=== PATIENT | female | born 1985 ===

== ENCOUNTER 2016-12-01 17:52 | Emergency (ER) | payer MEDICAID ==
[2016-12-01 17:56] VITALS: BMI 33.2
[2016-12-01 18:00] VITALS: RESP 16; TEMP 98.7
[2016-12-01] MEDS ORDERED: Sodium Chloride 0.9% 1,000 ML IV STA (18:38)
--- NOTE | 2016-12-01 18:40 | ED PDOC ---
Arrival/HPI - General Chief Complaint: Abdominal Pain Time Seen by Provider: 12/01/16 18:26 Historian: Patient - History of Present Illness Narrative History of Present Illness (Text): 12/01/16 18:38 31 year old female presents to the emergency department with intermittent suprapubic pain for the past 3 weeks and epigastric burning for the past 2 weeks. Patient states the suprapubic pain radiates to the back. She states she feels like there is acid in her mouth. Patient also reports nausea, vomiting, increased urination, and darker than usual urine. Denies dysuria or vaginal bleeding. Patient states she missed her period and had a positive test at the pharmacy. Time/Duration: > week Symptom Onset: Gradual Symptom Course: Unchanged Modifying Factors (Text): None Past Medical History - Provider Review Nursing Documentation Reviewed: Yes - Infectious Disease Hx of Infectious Diseases: None - Tetanus Immunization Tetanus Immunization: Up to Date - Past Medical History Past Medical History: No Previous - Cardiac Hx Cardiac Disorders: No Hx Angina: No - Pulmonary Hx Respiratory Disorders: No - Neurological Hx Neurological Disorder: No - HEENT Hx HEENT Disorder: No - Renal Hx Renal Disorder: No - Endocrine/Metabolic Hx Endocrine Disorders: No - Hematological/Oncological Hx Blood Disorders: No - Integumentary Hx Dermatological Disorder: No - Musculoskeletal/Rheumatological Hx Musculoskeletal Disorders: No - Gastrointestinal Hx Gastrointestinal Disorders: No - Genitourinary/Gynecological Hx Genitourinary Disorders: Yes Other/Comment: Pre-eclampsia. HSV II - Psychiatric Hx Psychophysiologic Disorder: No Hx Depression: No Hx Emotional Abuse: No Hx Physical Abuse: No Hx Substance Use: No (none) - Surgical History Hx Section: Yes Hx Cholecystectomy: Yes Hx Tonsillectomy: Yes - Anesthesia Hx Anesthesia: Yes Hx Anesthesia Reactions: No Hx Malignant Hyperthermia: No - Suicidal Assessment Feels Threatened In Home Enviroment: No Family/Social History - Physician Review Nursing Documentation Reviewed: Yes Family/Social History: Unknown Family HX Smoking Status: Never Smoked Hx Alcohol Use: No Hx Substance Use: No (none) Allergies/Home Meds Allergies/Adverse Reactions: Allergies Penicillins Allergy (Verified 12/01/16 17:56) RASH Home Medications: Home Meds Medication Instructions Recorded Confirmed Valacyclovir HCl [Valacyclovir] 500 mg PO BID 12/01/16 12/01/16 Review of Systems - Physician Review All systems were reviewed & negative as marked: Yes - Review of Systems ENT: Other (epigastric burning, acid sensation) Gastrointestinal: Abdominal Pain (suprapubic), Nausea, Vomiting Genitourinary Female: Other (Dark urine, increased urination). absent: Dysuria , Vaginal Bleeding Physical Exam - Physical Exam Narrative Physical Exam (Text): Constitutional: No acute distress. Head: Normocephalic. Atraumatic. Eyes: PERRL. ENT: Moist mucous membranes. Neck: Supple. Cardiovascular: Regular rate. Chest: No tenderness. Respiratory: Clear to auscultation bilaterally. GI: Soft. Suprapubic tenderness. No epigastric tenderness. Nondistended. Back: No CVA tenderness. Musculoskeletal: No tenderness or swelling of extremities. Skin: No rash. Neurologic: Alert, no focal deficit. Vital Signs Reviewed: Yes Vital Signs Temp Pulse Resp BP Pulse Ox 12/01/16 21:02 86 16 138/80 100 12/01/16 17:56 98.7 F 95 H 16 123/79 97 Temperature: Afebrile Blood Pressure: Normal Pulse: Regular Respiratory Rate: Normal Appearance: Positive for: Well-Appearing, Non-Toxic, Comfortable Pain Distress: None Mental Status: Positive for: Alert and Oriented X 3 Medical Decision Making ED Course and Treatment: Impression: 31 year old female presents to the emergency department with intermittent suprapubic pain for the past 3 weeks and epigastric burning for the past 2 weeks. Differential Diagnosis included but are not limited to: Plan: -- Pepcid -- IV fluids -- Labs -- Reassess and disposition Prior Visits: Notes and results from previous visits were reviewed. Patient last seen in the ED on 08/08/16 for nausea, dizziness, and discharged home. Progress Notes: UA negative. Patient feels well and appears well. Urine culture sent. Confirmed . No vaginal bleeding or abdominal tenderness. Continue pepcid for reflux. F/u OBGYN. Return to ER for fever, inability to take PO, dyspnea, or any other problem. - Lab Interpretations Lab Results: 12/01/16 18:20 12/01/16 18:20 Lab Results 12/01/16 20:55: Urine Color Yellow, Urine Appearance Clear, Urine pH 6.5, Ur Specific [place] 1.020, Urine Protein Negative, Urine Glucose (UA) Negative, Urine Ketones Negative, Urine Blood Negative, Urine Nitrate Negative, Urine Bilirubin Negative, Urine Urobilinogen 1.0 H, Ur Leukocyte Esterase Negative 12/01/16 18:20: Sodium 136, Potassium 3.9, Chloride 102, Carbon Dioxide 25, Anion Gap 13, BUN 12, Creatinine 0.7, Est GFR ( Amer) > 60, Est GFR (Non- Af Amer) > 60, Random Glucose 95, Calcium 9.0, Total Bilirubin 0.6, AST 40 H, ALT 52, Alkaline Phosphatase 69, Total Protein 8.2, Albumin 4.1, Globulin 4.1, Albumin/Globulin Ratio 1.0 L, Lipase 97 12/01/16 18:20: WBC 12.1 H D, RBC 4.40, Hgb 13.4, Hct 37.5, MCV 85.2, MCH 30.5, MCHC 35.7, RDW 13.0, Plt Count 352, MPV 9.6, Gran % 65.0, Lymph % (Auto) 26.2, [place] % (Auto) 5.9, Eos % (Auto) 2.7, Baso % (Auto) 0.2, Gran # 7.89 H, Lymph # 3.2, [place] # 0.7 H, Eos # 0.3, Baso # 0.02 - Medication Orders Current Medication Orders: Discontinued Medications Famotidine (Pepcid) 20 mg IVP STAT STA Stop: 12/01/16 18:39 Last Admin: 12/01/16 19:30 Dose: 20 mg Sodium Chloride (Sodium Chloride 0.9%) 1,000 mls @ 999 mls/hr IV .Q1H1M STA Stop: 12/01/16 19:38 Last Admin: 12/01/16 19:30 Dose: 999 mls/hr - Scribe Statement The provider has reviewed the documentation as recorded by the Katie Guevara Provider Scribe Attestation: All medical record entries made by the Leslyibcharla were at my direction and personally dictated by me. I have reviewed the chart and agree that the record accurately reflects my personal performance of the history, physical exam, medical decision making, and the department course for this patient. I have also personally directed, reviewed, and agree with the discharge instructions and disposition. Disposition/Present on Arrival - Present on Arrival Any Indicators Present on Arrival: No History of DVT/PE: No History of Uncontrolled Diabetes: No Urinary Catheter: No History of Decub. Ulcer: No History Surgical Site Infection Following: None - Disposition Have Diagnosis and Disposition been Completed?: Yes Diagnosis: Disposition: HOME/ ROUTINE Disposition Time: 21:00 Patient Plan: Discharge Condition: STABLE Discharge Instructions (ExitCare): Morning Sickness (ED), (ED) Prescriptions: Famotidine [Pepcid] 1 tab PO BID #14 tab Referrals: Moriah Fowler MD [Primary Care Provider] - Follow up with primary
[2016-12-01 19:03] LABS: ADD MANUAL DIFF? NO
[2016-12-01 19:10] LABS: BASO # 0.02 K/mm3 (0.0-2.0); BASO % 0.2 % (0.0-3.0); EOS # 0.3 (0.0-0.7); EOS % 2.7 % (1.5-5.0); GRAN # 7.89 (1.4-6.5); HEMATOCRIT 37.5 % (36.0-48.0); LYMPH # 3.2 (1.2-3.4); LYMPH % 26.2 % (22.0-35.0); MEAN CELL VOLUME 85.2 fL (80.0-105.0); MEAN CORPUSCULAR HEMOGLOBIN 30.5 pg (25.0-35.0); MEAN CORPUSCULAR HGB CONC 35.7 g/dl (31.0-37.0); MEAN PLATELET VOLUME 9.6 fl (7.0-11.0); MONO # 0.7 (0.1-0.6); MONO % 5.9 % (1.0-6.0); PLATELET COUNT 352 10^3/uL (120.0-450.0); WHITE BLOOD COUNT 12.1 10^3/ul (4.5-11.0)
[2016-12-01 19:32] LABS: ALKALINE PHOSPHATASE 69 U/L (38-133); ALT/SGPT 52 U/L (7-56); AST/SGOT 40 U/L (15-39); BILIRUBIN,TOTAL 0.6 mg/dL (0.2-1.3); BLOOD UREA NITROGEN 12 mg/dL (7-21); CARBON DIOXIDE 25 mmol/L (21-33); CHLORIDE 102 mmol/L (95-110); GFR AFRICAN-AMERICAN > 60; GLUCOSE,RANDOM 95 mg/dL (70-110); LIPASE 97 U/L (23-300); POTASSIUM 3.9 mmol/L (3.6-5.0); SODIUM 136 mmol/L (132-148); TOTAL PROTEIN 8.2 g/dL (5.8-8.3)
[2016-12-01 21:03] VITALS: BP 138/80; PULSE 86; O2SAT 100
[2016-12-01 21:11] LABS: PH,URINE 6.5 (4.7-8.0); URINE BILIRUBIN NEGATIVE (NEGATIVE); URINE BLOOD NEGATIVE (NEGATIVE); URINE GLUCOSE (UA) NEGATIVE (NEGATIVE); URINE KETONE NEGATIVE (NEGATIVE); URINE LEUKOCYTE ESTERASE NEGATIVE Leu/uL (NEGATIVE); URINE PROTEIN NEGATIVE mg/dL (<30 mg/dL)
[2016-12-01 21:14] LABS: URINE APPEARANCE CLEAR (CLEAR); URINE COLOR YELLOW (YELLOW)
== END 2016-12-01 21:32 | disposition home or self-care (01) ==
LOC: ED 17:52
DX: O26.90 Pregnancy related conditions, unspecified, unspecified trimester (principal); Z3A.00 Weeks of gestation of pregnancy not specified
CPT/HCPCS: 80053; 81003; 83690; 84702; 85025; 87086; 96361; 96374; 99283; J7040

== ENCOUNTER 2016-12-07 11:53 | Inpatient (IN) | payer MEDICAID ==
[2016-12-07 11:57] VITALS: BMI 28.3
[2016-12-07] MEDS: Sodium Chloride 0.9% 1,000 ML IV STA (12:03)
[2016-12-07 12:31] LABS: ADD MANUAL DIFF? NO
--- NOTE | 2016-12-07 12:32 | ED PDOC ---
Arrival/HPI - General Chief Complaint: Abdominal Pain Time Seen by Provider: 12/07/16 11:54 Historian: Patient - History of Present Illness Narrative History of Present Illness (Text): 12/07/16 12:00 A 31 year old 19 week female, whose past medical history includes ectopic , presents to the emergency department complaining of left lower quadrant abdominal pain. Patient states her last menstrual cycle was in . She reports this morning at 5 am she developed sudden onset left lower quadrant abdominal pain, which radiates to the back. Pain is associated with nausea. Patient denies any vaginal bleeding, dyruria, hematuria, diarrhea, or other complaints at this time. Patient states she did not have any pain or discharge prior to going to bed last night. Patient reports no care or ultrasound thus far. Patient says had an ectopic back in 2009 when she was in [place]. PMD: Dr. Fowler Time/Duration: Other (6-12 hours) Symptom Onset: Sudden Symptom Course: Unchanged Quality: Other Activities at Onset: Rest Context: Home Past Medical History - Provider Review Nursing Documentation Reviewed: Yes - Infectious Disease Hx of Infectious Diseases: None - Tetanus Immunization Tetanus Immunization: Up to Date - Past Medical History Past Medical History: No Previous - Cardiac Hx Cardiac Disorders: No Hx Angina: No - Pulmonary Hx Respiratory Disorders: No - Neurological Hx Neurological Disorder: No - HEENT Hx HEENT Disorder: No - Renal Hx Renal Disorder: No - Endocrine/Metabolic Hx Endocrine Disorders: No - Hematological/Oncological Hx Blood Disorders: No - Integumentary Hx Dermatological Disorder: No - Musculoskeletal/Rheumatological Hx Musculoskeletal Disorders: No - Gastrointestinal Hx Gastrointestinal Disorders: No - Genitourinary/Gynecological Hx Genitourinary Disorders: Yes Other/Comment: Pre-eclampsia, 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 - Psychiatric Hx Psychophysiologic Disorder: No Hx Depression: No Hx Emotional Abuse: No Hx Physical Abuse: No Hx Substance Use: No (none) - Surgical History Hx Section: Yes Hx Cholecystectomy: Yes Hx Tonsillectomy: Yes - Anesthesia Hx Anesthesia: Yes Hx Anesthesia Reactions: No Hx Malignant Hyperthermia: No - Suicidal Assessment Feels Threatened In Home Enviroment: No Family/Social History - Physician Review Nursing Documentation Reviewed: Yes Family/Social History: Unknown Family HX Smoking Status: Never Smoked Hx Alcohol Use: No Hx Substance Use: No (none) Allergies/Home Meds Allergies/Adverse Reactions: Allergies Penicillins Allergy (Verified 12/07/16 15:20) RASH Home Medications: Home Meds Medication Instructions Recorded Confirmed No Known Home Med 12/07/16 12/07/16 Review of Systems - Review of Systems Constitutional: Fevers. absent: Fatigue Eyes: absent: Vision Changes, Eye Pain ENT: absent: Rhinorrhea Respiratory: absent: SOB Cardiovascular: absent: Chest Pain Gastrointestinal: Abdominal Pain, Nausea. absent: Diarrhea Genitourinary Female: absent: Dysuria, Frequency, Hematuria, Vaginal Bleeding, Vaginal Discharge Musculoskeletal: Back Pain. absent: Neck Pain Skin: absent: Rash, Pruritis Neurological: absent: Headache, Dizziness Endocrine: absent: Polyuria Hemo/Lymphatic: absent: Easy Bleeding Psychiatric: absent: Depression Physical Exam - Physical Exam Narrative Physical Exam (Text): Head: Atraumatic. Normocephalic. Eyes: PERRL. EOMI. Conjunctivae are not pale. ENT: Mucous membranes are moist and intact. Oropharynx is clear and symmetric. Neck: Supple. Full ROM. No JVD. No lymphadenopathy. Cardiovascular: Regular rate. Regular rhythm. No murmurs, rubs, or gallops. Distal pulses are 2+ and symmetric. Pulmonary/Chest: No evidence of respiratory distress. Clear to auscultation bilaterally. No wheezing, rales or rhonchi. Abdominal: Soft and non-distended. Severe diffuse tenderness with focal rebound and guarding at the left lower quadrant. No rigidity. No organomegaly. Good bowel sounds. Back: No CVA tenderness. Genitourinary/Pelvic Exam: No: Vaginal Discharge, Vaginal Bleeding Extremities: No edema. No cyanosis. No clubbing. Full range of motion in all extremities. No calf tenderness. Skin: Skin is warm and dry. No petechiae. No purpura. Neurological: Alert, awake, and oriented to person, place, time, and situation. Normal speech. Psychiatric: Good eye contact. Normal interaction, affect, and behavior. Vital Signs Reviewed: Yes Vital Signs Temp Pulse Resp BP Pulse Ox 12/07/16 14:47 111 H 16 127/80 100 12/07/16 13:00 121 H 17 125/77 100 12/07/16 11:59 100.6 F H 121 H 19 134/74 98 Temperature: Febrile Blood Pressure: Normal Pulse: Tachycardic Respiratory Rate: Normal Appearance: Positive for: Well-Appearing, Non-Toxic, Uncomfortable Pain Distress: Severe Mental Status: Positive for: Alert and Oriented X 3 Finger Stick Blood Glucose: 110 - Systems Exam Head: Present: Atraumatic, Normocephalic Pupils: Present: PERRL Extroacular Muscles: Present: EOMI Conjunctiva: Present: Normal Mouth: Present: Moist Mucous Membranes Neck: Present: Normal Range of Motion Respiratory/Chest: Present: Clear to Auscultation, Good Air Exchange. No: Respiratory Distress, Accessory Muscle Use Cardiovascular: Present: Normal S1, S2, Tachycardic. No: Murmurs Abdomen: Present: Tenderness (severe diffuse tenderness ), Normal Bowel Sounds, Rebound (focal rebound at the left lower quadrant), Guarding (focal guarding at the left lower quadrant), Other (diffuse tenderness, focal to left lower quadrant pain, NO right lower quadrant rebound or guarding). No: Distention, Peritoneal Signs Genitourinary/Pelvic Exam: Present: Normal External Genitalia, Other (luis, rn metal building assembler, no external veiscular lesions, no vaginal bleeding or vaginal discharge, no adnexal masses palpated, has tenderness in vaginal vault but no cervical motion tenderness, no active bleeding). No: Vaginal Discharge, Vaginal Bleeding, Vaginal Lesions Back: No: CVA Tenderness Upper Extremity: Present: Normal Inspection. No: Cyanosis, Edema Lower Extremity: Present: Normal Inspection. No: Edema Neurological: Present: GCS=15, CN II-XII Intact, Speech Normal Skin: Present: Warm, Dry, Normal Color. No: Rashes Psychiatric: Present: Alert, Oriented x 3, Normal Insight, Normal Concentration Medical Decision Making ED Course and Treatment: 12/07/16 12:00 Impression: A 31 year old female with a history of a ectopic complaining of left lower quadrant pain. Based on patient history and initial examination 2 IV lines were established. Emergent consultation with Dr. Garcia from on-call gynecology obtained immediately after exam due to concern for ectopic . Prior Visits: Notes and results from previous visits were reviewed. The patient last presented to the emergency department on 12/01/16 for evaluation suprapubic pain. Progress Notes: I communicated with ultrasound for emergency ultrasound, continued monitoring of patient and BP. Prior records reveal that she has had history of cholecystectomy. There is no FOCAL right lower quadrant pain on exam. Patient states she had NO PAIN prior to going to bed last night and she had sudden onset of pain that woke her up from sleep at 5 am today. She presents to ED at approximately 12 noon, stating pain has been on and off throughout the morning. Fever noted, but initial lactate unremarkable. BP at this time stable. She denies cough or shortness of breath. Prior visit reviewed, urine culture was unremarkable from 12/01. I have offered patient iv pain medication and did review potential risks and side effects with . After discussion, she refuses any iv pain medication. PROCEDURE: OB Pelvic Ultrasound Investment Manager : Scarlett Álvarez MD Report Date : 12/07/2016 12:56:24 IMPRESSION: Single live intrauterine gestation with mean gestational age of 6 weeks and 4 days. The ultrasound dates lag the clinical dates by approximately 5 weeks. Clinical correlation and follow-up is advised. Estimated date of delivery by ultrasound is 07/29/2017. 12/07/16 13:30 Re-exam upon return from ultrasound. Patient heart rate 110. DENIES CHEST PAIN OR SHORTNESS OF BREATH. On exam, she states pain improved, but on exam, persistent left lower quadrant pain. Continues to have no rlq or ruq abdominal pain. Dr. Garcia updated with patient's ultrasound findings revealing IUP. No adnexal masses reported. Tachycardia improved. Continues to deny chest pain or shortness of breath or pleuritic pain. There is no calf pain or swelling. No prior hx of deep vein thombosis or pulmonary embolism. No hypoxia. No prolonged travel or immoblization by history. Symptoms consistent abdominal pain. Suspect tachycardia possibly related to history of nausea, decreased appetite, possible component of dehydration, will continue iv fluids but continue monitoring. Also possibly secondary to low grade fever. Ddx includes PID but she denies hx of STD, reports no known exposures. NO cervical motion tenderness noted on pelvic exam with ANNELIESE Cruz metal building assembler. GC/ Chlamydia ordered. Patient reports allergy to PCN. No rebound or guarding on re-exam. Surgery consulted as patient with history of severe lower abdominal pain with leukocytosis, and IUP documented on ultrasound. Patient with persistent pain will admit for serial exams, case discussed with Dr. Iyer, hospitalist. Dr Garcia updated with treatment plan and consultation. Risks discussed with patient as she has persistent pain. Risks of miscarriage, complications reviewed with patient, currently cv stable with chest pain or sob in ED, care turned over to hospitalist with admission. - Lab Interpretations Lab Results: 12/07/16 12:06 12/07/16 12:06 Lab Results 12/07/16 12:55: Influenza Typ A,B (EIA) Negative for flu a/b 12/07/16 12:30: Blood Type A POSITIVE, Antibody Screen Negative, BBK History Checked No verified bt 12/07/16 12:11: POC Glucose (mg/dL) 110 12/07/16 12:06: Beta HCG, Quant 63491.00 H 12/07/16 12:06: Sodium 134, Chloride 98, Potassium 4.2, Carbon Dioxide 25, Anion Gap 15, BUN 9, Creatinine 0.6, Est GFR ( Amer) > 60, Est GFR (Non- Af Amer) > 60, Random Glucose 92, Calcium 9.8, Total Bilirubin 0.9, AST 21, ALT 36, Alkaline Phosphatase 71, Total Protein 8.4 H, Albumin 4.5, Globulin 3.9, Albumin/Globulin Ratio 1.2 12/07/16 12:06: pO2 33, VBG pH 7.37, VBG pCO2 47.0, VBG HCO3 27.2, VBG Total CO2 28.6 H, VBG O2 Sat (Calc) 64.2, VBG Base Excess 1.3, VBG Potassium 4.1, Sodium 133.0, Chloride 99.0, Glucose 102, Lactate 1.0, FiO2 21.0, Venous Blood Potassium 4.1 12/07/16 12:06: PT 10.8, INR 1.00, APTT 25.7 12/07/16 12:06: WBC 15.4 H D, RBC 4.78, Hgb 14.7, Hct 40.6, MCV 84.9, MCH 30.8, MCHC 36.2, RDW 13.0, Plt Count 325, MPV 10.0, Gran % 86.9 H, Lymph % (Auto) 7.4 L, [place] % (Auto) 5.3, Eos % (Auto) 0.3 L, Baso % (Auto) 0.1, Gran # 13.33 H, Lymph # 1.1 L, [place] # 0.8 H, Eos # 0.1, Baso # 0.02 - RAD Interpretation Radiology Orders: 12/07/16 12:12 OB TRANSVAGINAL [US] Stat Algebraist: Radiologist - EKG Interpretation EKG Interpretation (Text): 12/07/16 12:12 EKG sinus tachycardia rate of 119 Interpreted by ED Physician: Yes Type: 12 lead EKG - Medication Orders Current Medication Orders: Acetaminophen (Tylenol 325mg Tab) 650 mg PO Q6H PRN PRN Reason: Fever >100.4 F Famotidine (Pepcid) 20 mg IVP DAILY [facility] Last Admin: 12/07/16 14:46 Dose: 20 mg Sodium Chloride (Sodium Chloride 0.9%) 1,000 mls @ 100 mls/hr IV .Q10H [facility] Last Admin: 12/07/16 14:42 Dose: 100 mls/hr Ondansetron HCl (Zofran Inj) 4 mg IVP Q4H PRN PRN Reason: Nausea/Vomiting Discontinued Medications Acetaminophen (Tylenol 325mg Tab) 650 mg PO ONCE STA Stop: 12/07/16 12:15 Last Admin: 12/07/16 12:50 Dose: 650 mg Re-Assess: [facility] Pain/Vitals Document 12/07/16 13:50 ML (Rec: 12/07/16 15:36 ML [id number]) Pain Reassessment Is This A Pain ReAssessment? Yes Sleep Is patient sleeping during reassessment? No Presence of Pain Presence of Pain Yes Pain Scale Used Pain Scale Used Numeric Location Left, Right or Bilateral Left Pain Location Body Site Abdomen Description Intermittent Intensity 6 Pain Behavior Guarding Irritability Sodium Chloride (Sodium Chloride 0.9%) 1,000 mls @ 1,000 mls/hr IV .Q1H STA Stop: 12/07/16 13:02 Last Admin: 12/07/16 12:03 Dose: 1,000 mls/hr Aztreonam (Azactam 1 Gm) 100 mls @ 100 mls/hr IVPB STAT STA PRN Reason: Protocol Stop: 12/07/16 15:49 Last Admin: 12/07/16 15:04 Dose: 100 mls/hr - Scribe Statement The provider has reviewed the documentation as recorded by the Scribcharla Begum Provider Scribe Attestation: All medical record entries made by the Scribe were at my direction and personally dictated by me. I have reviewed the chart and agree that the record accurately reflects my personal performance of the history, physical exam, medical decision making, and the department course for this patient. I have also personally directed, reviewed, and agree with the discharge instructions and disposition. Disposition/Present on Arrival - Present on Arrival Any Indicators Present on Arrival: No History of DVT/PE: No History of Uncontrolled Diabetes: No Urinary Catheter: No History of Decub. Ulcer: No History Surgical Site Infection Following: None - Disposition Have Diagnosis and Disposition been Completed?: Yes Diagnosis: Abdominal pain, , Leukocytosis Disposition: HOSPITALIZED Disposition Time: 13:00 Patient Plan: Admission, Telemetry Patient Problems: Current Active Problems Problem Status Onset Abdominal pain Acute Leukocytosis Acute Acute Condition: SERIOUS
[2016-12-07 12:34] LABS: VENOUS BLOOD GAS BASE EXCESS 1.3 mmol/L (0.0-2.0); VENOUS BLOOD PH 7.37 (7.32-7.43)
[2016-12-07 12:37] LABS: BASO # 0.02 K/mm3 (0.0-2.0); BASO % 0.1 % (0.0-3.0); EOS # 0.1 (0.0-0.7); EOS % 0.3 % (1.5-5.0); GRAN # 13.33 (1.4-6.5); GRAN % 86.9 % (50.0-68.0); HEMATOCRIT 40.6 % (36.0-48.0); LYMPH # 1.1 (1.2-3.4); LYMPH % 7.4 % (22.0-35.0); MEAN CELL VOLUME 84.9 fL (80.0-105.0); MEAN CORPUSCULAR HEMOGLOBIN 30.8 pg (25.0-35.0); MEAN CORPUSCULAR HGB CONC 36.2 g/dl (31.0-37.0); MONO # 0.8 (0.1-0.6); MONO % 5.3 % (1.0-6.0); PLATELET COUNT 325 10^3/uL (120.0-450.0); WHITE BLOOD COUNT 15.4 10^3/ul (4.5-11.0)
[2016-12-07 12:44] LABS: PARTIAL THROMBOPLASTIN TIME 25.7 Seconds (23.7-30.8)
[2016-12-07 12:45] LABS: ALB/GLOB RATIO 1.2 (1.1-1.8); ALKALINE PHOSPHATASE 71 U/L (38-133); ALT/SGPT 36 U/L (7-56); AST/SGOT 21 U/L (15-39); BILIRUBIN,TOTAL 0.9 mg/dL (0.2-1.3); BLOOD UREA NITROGEN 9 mg/dL (7-21); CALCIUM 9.8 mg/dL (8.4-10.5); CARBON DIOXIDE 25 mmol/L (21-33); CHLORIDE 98 mmol/L (98-107); GFR AFRICAN-AMERICAN > 60; GLUCOSE,RANDOM 92 mg/dL (70-110); POTASSIUM 4.2 mmol/L (3.6-5.0); SODIUM 134 mmol/L (132-148); TOTAL PROTEIN 8.4 g/dL (5.8-8.3)
--- NOTE | 2016-12-07 12:58 | US ---
PROCEDURE: OB Pelvic Ultrasound HISTORY: Severe lower abdominal pain COMPARISON: None available. FINDINGS: UTERUS: Single Live intrauterine gestation. CRL equivalent to 6 wks/ 4 days gestatioin Gestational sac diameter equivalent to 6 wks/4 days gestation age (Ultrasound estimated): 6 weeks and 4 days Date of delivery (Ultrasound estimated) : 07/29/2017 Heart rate: 140 bpm. Hanny-gestational hemorrhage: None. Uterus measures 12.2 x 4.4 x 7.0 cm. No mass CERVIX: Long and closed. No cervical abnormality seen. RIGHT OVARY: Measures 3.1 x 1.8 x 1.7 cm. No mass. Normal flow. LEFT OVARY: Measures 2.3 x 1.6 x 1.7 cm. No mass. Normal flow. FREE FLUID: None. OTHER FINDINGS: None. IMPRESSION: Single live intrauterine gestation with mean gestational age of 6 weeks and 4 days. The ultrasound dates lag the clinical dates by approximately 5 weeks. Clinical correlation and follow-up is advised. Estimated date of delivery by ultrasound is 07/29/2017.
[2016-12-07 14:28] LABS: URINE BILIRUBIN NEGATIVE (NEGATIVE); URINE BLOOD NEGATIVE (NEGATIVE); URINE GLUCOSE (UA) NEGATIVE (NEGATIVE); URINE KETONE 15 mg/dL (NEGATIVE); URINE LEUKOCYTE ESTERASE NEGATIVE Leu/uL (NEGATIVE); URINE PROTEIN NEGATIVE mg/dL (<30 mg/dL); URINE UROBILINOGEN 0.2 E.U./dL (<1 E.U./dL)
[2016-12-07 14:33] LABS: URINE APPEARANCE CLEAR (CLEAR); URINE COLOR YELLOW (YELLOW)
[2016-12-07] MEDS: Sodium Chloride 0.9% 1,000 ML IV SCH (14:42)
[2016-12-07] MEDS ORDERED: Aztreonam 1 Gm in NS 100mL 100 ML IVPB STA (14:50)
--- NOTE | 2016-12-07 15:28 | CP.PCM.HP ---
<Osvaldo Camarillo - Last Filed: 12/07/16 16:15> History of Present Illness - History of Present Illness History of Present Illness: 31 year old female who is 6 weeks presented to the ED sudden sharp LLQ abdominal pain, which radiates to the back and is associated with nausea, low grade fever of 100.6 and leukocytosis. Pelvic exam did not have evidence of bleeding or discharge and transvaginal US showed a 6 week intrauterine . Pt's last normal period was in Aug and her periods in Sep and Oct lasted one day. Pt. was in the ED 1 week prior for intermittent suprapubic pain for 3 weeks and epigastric burning for 2 weeks, but did not have a fever or leukocytosis. HCG at that time confirmed . Patient denies any vaginal bleeding, dysuria, hematuria, diarrhea, or other complaints at this time. 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 absent: Fatigue - EENT Eyes: absent: Blurred Vision, Change in Vision Ears: absent: Decreased Hearing Nose/Mouth/Throat: absent: Epistaxis, Sore Throat, Neck Pain - Cardiovascular Cardiovascular: Rapid Heart Rate. absent: Chest Pain, Chest Pain at Rest, Dyspnea, Irregular Heart Rhythm, Leg Edema, Leg Ulcers, Palpitations - Respiratory Respiratory: absent: Cough, Dyspnea, Hemoptysis, Chest Congestion - Gastrointestinal Gastrointestinal: Abdominal Pain (left lower quadrant), Heartburn, Nausea. absent: Constipation, Diarrhea - Genitourinary Genitourinary: absent: Dysuria, Hematuria, Pyuria, Urinary Frequency - Reproductive: Female Reproductive:Female: absent: Vaginal Discharge, Vaginal Dryness, Vaginal Odor Additional comments: Pt. is approximately 6 weeks - Menstruation Menstruation: absent: Abnormal Vaginal Bleeding - Musculoskeletal Musculoskeletal: absent: Joint Swelling, Muscle Weakness, Neck Pain - Integumentary Integumentary: absent: Rash, Skin Pain, Swelling - Psychiatric Psychiatric: absent: Anxiety, Depression, Hopelessness, Irritability - Endocrine Endocrine: absent: Fatigue, Palpitations, Polydipsia, Polyuria Past Patient History - Infectious Disease Hx of Infectious Diseases: None - Tetanus Immunizations Tetanus Immunization: Up to Date - Past Social History Smoking Status: Never Smoked Chewing Tobacco Use: No Cigar Use: No Alcohol: None Drugs: Denies Home Situation {Lives}: Alone (with 2 sons 15 and 11) - CARDIAC Hx Cardiac Disorders: Yes Hx Angina: No Hx Hypertension: Yes - PULMONARY Hx Respiratory Disorders: No - NEUROLOGICAL Hx Neurological Disorder: No - HEENT Hx HEENT Problems: No - RENAL Hx Chronic Kidney Disease: No - ENDOCRINE/METABOLIC Hx Endocrine Disorders: No - HEMATOLOGICAL/ONCOLOGICAL Hx Blood Disorders: No - INTEGUMENTARY Hx Dermatological Problems: No - MUSCULOSKELETAL/RHEUMATOLOGICAL Hx Musculoskeletal Disorders: No - GASTROINTESTINAL Hx Gastrointestinal Disorders: Yes Hx Gastroesophageal Reflux: Yes - GENITOURINARY/GYNECOLOGICAL Hx Genitourinary Disorders: Yes Other/Comment: Pre-eclampsia, 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 LMP:: October : 4 (currently ) Para: 2 Termination of : 1 (Ectopic Preg) - PSYCHIATRIC Hx Psychophysiologic Disorder: No Hx Depression: No Hx Emotional Abuse: No Hx Physical Abuse: No Hx Substance Use: No (none) - SURGICAL HISTORY Hx Section: Yes Hx Cholecystectomy: Yes Hx Tonsillectomy: Yes - ANESTHESIA Hx Anesthesia: Yes Hx Anesthesia Reactions: No Hx Malignant Hyperthermia: No Meds Allergies/Adverse Reactions: Allergies Allergy/AdvReac Type Severity Reaction Status Date / Time Penicillins Allergy RASH Verified 12/07/16 15:20 Physical Exam - Head Exam Head Exam: ATRAUMATIC, NORMOCEPHALIC - Eye Exam Eye Exam: EOMI - ENT Exam ENT Exam: Mucous Membranes Moist - Respiratory Exam Respiratory Exam: Clear to Auscultation Bilateral, NORMAL BREATHING PATTERN. absent: Rhonchi, Wheezes - Cardiovascular Exam Cardiovascular Exam: Tachycardia, +S1, +S2. absent: JVD - GI/Abdominal Exam GI & Abdominal Exam: Normal Bowel Sounds, Soft, Tenderness (left side) - Extremities Exam Extremities exam: Positive for: full ROM, normal inspection. Negative for: joint swelling, pedal edema, tenderness - Neurological Exam Neurological exam: Alert, CN II-XII Intact, Oriented x3 - Psychiatric Exam Psychiatric exam: Normal Affect, Normal Mood - Skin Skin Exam: Dry, Intact, Normal Color, Warm Results - Vital Signs Recent Vital Signs: Last Vital Signs Temp 100.6 F H 12/07/16 11:59 Pulse 111 H 12/07/16 14:47 Resp 16 12/07/16 14:47 BP 127/80 12/07/16 14:47 Pulse Ox 100 12/07/16 14:47 - Labs Result Diagrams: 12/07/16 12:06 12/07/16 12:06 Labs: Laboratory Results - last 24 hr 12/07/16 12/07/16 14:00 14:00 Urine Color Yellow Urine Appearance Clear Urine pH 7.0 Ur Specific [place] 1.010 Urine Protein Negative Urine Glucose (UA) Negative Urine Ketones 15 H Urine Blood Negative Urine Nitrate Negative Urine Bilirubin Negative Urine Urobilinogen 0.2 Ur Leukocyte Esterase Negative Urine HCG, Qual Positive Blood Type Confirm A POSITIVE Assessment & Plan - Assessment and Plan (Free Text) Assessment: 31 year old female who is 6 weeks presented to the ED sudden sharp LLQ abdominal pain. Gastritis vs Entertitis vs PID. Plan: Abdominal pain in the setting of Blood Culture Urine Culture Drug Screen G/C screen HIV Aztreonam - received one dose in the ED IV fluids 100ml/hr Zofran 4mg q4 prn Pepcid 20mg daily Tylenol 650mg q6 prn for pain Morphine for intractable pain ID consult - Dr. Triplett -appreciate recs OB consult - Dr. Garcia -appreciate recs Surgery consult - Dr. Alston -appreciate recs -no acute surgical intervention at this time SCD's for DVT ppx - Date & Time Date: 12/07/16 Time: 14:00 <Giselle Iyer - Last Filed: 12/08/16 17:45> Results - Vital Signs Recent Vital Signs: Last Vital Signs Temp 98.5 F 12/08/16 17:16 Pulse 80 12/08/16 17:16 Resp 18 12/08/16 17:16 BP 114/74 12/08/16 17:16 Pulse Ox 100 12/08/16 17:16 - Labs Result Diagrams: 12/08/16 07:00 12/08/16 07:00 Attending/Attestation - Attestation I have personally seen and examined this patient.: Yes I have fully participated in the care of the patient.: Yes I have reviewed all pertinent clinical information: Yes Notes (Text): 12/08/16 17:40 attending note; patient seen and examined With the resident in ER. patient is a 31-year-old female admitted with diffuse abdominal pain. Patient was found to be . Transvaginal ultrasound showed intra-atrial of 6 weeks and 4 days. Patient with a history of UTI with and preeclampsia 13 yrs ago. Currently no GI/ symptoms. denies any diarrhea. Denies any urinary symptoms. Clinically nontoxic. Continue IV fluids. Monitor for fever. Surgery evaluation requested. ID evaluation requested. Patient is allergic to penicillin. Started on IV Azactam. Monitor closely. We will monitor the patient closely. If clinically patient deteriorates Will order CT scan or MRI. risks and benefits all the tests and medications explained to the patient in detail. Case discussed with PIPE CHANGER Dr. Garcia by ED attending DR. Benavidez. upon discharge the patient will follow up with PMD DR. Fowler.
--- NOTE | 2016-12-07 15:29 | CP.PCM.CON ---
History of Present Illness - History of Present Illness History of Present Illness: Surgery: Dr. Moreno CC: Left side and Left flank pain HPI: Patient is a 31 y/o A1 female who presents complaining for left sided abdominal pain that started this morning. She states she woke up this morning feeling nauseated and subsequently started vomiting. She states the pain started after the episode of vomiting. She denies hematemesis. She states she attempted to have a bowel movement however was unsuccessful. Last report BM was 3 days ago. She cant keep water down without vomiting. She denies strange food types. She denies diarrhea. She reports fever at home. The pain in the LLQ radiates to the left flank. Described as sharp and mainly present with palpation only. She reports her last period was in September which was normal however in October and November she only had a period for 1 day. She states she was unaware she was until about 1 week ago when she was seen in ER for dysuria. She has not seen a OBGYN physician. She reports being sexually active with boyfriend and reports monogamy. PMH: genital herpes-take medication for breakouts only, gestational diabetes, ectopic PSH: salpingectomy, laparoscopic 2/2 ectopic Social: denies ETOH or tobacco products, reports monogamous relationship w/ boyfriend Review of Systems - Review of Systems All systems: reviewed and no additional remarkable complaints except Review of Systems: unless stated in HPI - Constitutional Constitutional: Anorexia, Fever. absent: Chills - EENT Eyes: absent: Blind Spots, Blurred Vision Nose/Mouth/Throat: absent: Sinus Pain, Dry Mouth - Cardiovascular Cardiovascular: absent: Chest Pain, Diaphoresis - Respiratory Respiratory: absent: Cough, Dyspnea - Gastrointestinal Gastrointestinal: Abdominal Pain, Nausea, Vomiting. absent: Bloating, Cramping , Diarrhea - Genitourinary Genitourinary: Flank Pain. absent: Dysuria, Hematuria - Reproductive: Female Reproductive:Female: Amenorrhea. absent: Genital Lesions, Vaginal Discharge, Vaginal Odor, Vaginal Pruritis Additional comments: 6wk4d EGA by ultrasound - Musculoskeletal Musculoskeletal: As Per HPI - Integumentary Integumentary: As Per HPI - Neurological Neurological: As Per HPI - Endocrine Endocrine: As Per HPI. absent: Polydipsia, Polyphagia - Hematologic/Lymphatic Hematologic: absent: Easy Bleeding, Easy Bruising Past Patient History - Infectious Disease Hx of Infectious Diseases: None - Tetanus Immunizations Tetanus Immunization: Up to Date - Past Social History Smoking Status: Never Smoked - CARDIAC Hx Cardiac Disorders: No Hx Angina: No - PULMONARY Hx Respiratory Disorders: No - NEUROLOGICAL Hx Neurological Disorder: No - HEENT Hx HEENT Problems: No - RENAL Hx Chronic Kidney Disease: No - ENDOCRINE/METABOLIC Hx Endocrine Disorders: No - HEMATOLOGICAL/ONCOLOGICAL Hx Blood Disorders: No - INTEGUMENTARY Hx Dermatological Problems: No - MUSCULOSKELETAL/RHEUMATOLOGICAL Hx Musculoskeletal Disorders: No - GASTROINTESTINAL Hx Gastrointestinal Disorders: No - GENITOURINARY/GYNECOLOGICAL Hx Genitourinary Disorders: Yes Other/Comment: Pre-eclampsia, 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 - PSYCHIATRIC Hx Psychophysiologic Disorder: No Hx Depression: No Hx Emotional Abuse: No Hx Physical Abuse: No Hx Substance Use: No (none) - SURGICAL HISTORY Hx Section: Yes Hx Cholecystectomy: Yes Hx Tonsillectomy: Yes - ANESTHESIA Hx Anesthesia: Yes Hx Anesthesia Reactions: No Hx Malignant Hyperthermia: No Meds Allergies/Adverse Reactions: Allergies Allergy/AdvReac Type Severity Reaction Status Date / Time Penicillins Allergy RASH Verified 12/07/16 15:20 - Medications Medications: Current Medications Acetaminophen (Tylenol 325mg Tab) 650 mg PO Q6H PRN PRN Reason: Fever >100.4 F Famotidine (Pepcid) 20 mg IVP DAILY [facility] Last Admin: 12/07/16 14:46 Dose: 20 mg Sodium Chloride (Sodium Chloride 0.9%) 1,000 mls @ 100 mls/hr IV .Q10H [facility] Last Admin: 12/07/16 14:42 Dose: 100 mls/hr Aztreonam (Azactam 1 Gm) 100 mls @ 100 mls/hr IVPB STAT STA PRN Reason: Protocol Stop: 12/07/16 15:49 Last Admin: 12/07/16 15:04 Dose: 100 mls/hr Ondansetron HCl (Zofran Inj) 4 mg IVP Q4H PRN PRN Reason: Nausea/Vomiting Physical Exam - Constitutional Appears: Non-toxic, No Acute Distress - Head Exam Head Exam: ATRAUMATIC, NORMOCEPHALIC - Eye Exam Eye Exam: EOMI, Normal appearance - ENT Exam ENT Exam: Mucous Membranes Moist - Respiratory Exam Respiratory Exam: NORMAL BREATHING PATTERN. absent: Respiratory Distress - Cardiovascular Exam Cardiovascular Exam: Tachycardia, REGULAR RHYTHM - GI/Abdominal Exam GI & Abdominal Exam: Soft, Tenderness (LLQ and Left flank, suprapubic ) - Extremities Exam Extremities exam: Positive for: normal inspection. Negative for: calf tenderness - Neurological Exam Neurological exam: Alert - Psychiatric Exam Psychiatric exam: Normal Affect, Normal Mood - Skin Skin Exam: Dry, Normal Color, Warm Results - Vital Signs Recent Vital Signs: Last Vital Signs Temp 100.6 F H 12/07/16 11:59 Pulse 111 H 12/07/16 14:47 Resp 16 12/07/16 14:47 BP 127/80 12/07/16 14:47 Pulse Ox 100 12/07/16 14:47 - Labs Result Diagrams: 12/07/16 12:06 12/07/16 12:06 Labs: Laboratory Results - last 24 hr 12/07/16 12/07/16 14:00 14:00 Urine Color Yellow Urine Appearance Clear Urine pH 7.0 Ur Specific [place] 1.010 Urine Protein Negative Urine Glucose (UA) Negative Urine Ketones 15 H Urine Blood Negative Urine Nitrate Negative Urine Bilirubin Negative Urine Urobilinogen 0.2 Ur Leukocyte Esterase Negative Urine HCG, Qual Positive Blood Type Confirm A POSITIVE Assessment & Plan - Assessment and Plan (Free Text) Assessment: 31 y/o A1 w/ LLQ abdominal pain and n/v x1 day Plan: -could be 2/2 constipation and dehydration from hyperemesis -would recommend IV fluid hydration -ok for diet from surgical standpoint -colace for BM -need OBGYN evaluation -no acute surgical intervention at this time -further recs per Dr. Josh Anaya PGY1
--- NOTE | 2016-12-07 16:09 | CARD ---
APPROVED REPORT EKG Measurement Heart [id number] <Conclusion> Poor data quality, interpretation may be adversely affected Sinus tachycardia Otherwise normal ECG
[2016-12-07] MEDS: Aztreonam 1 Gm in NS 100mL 100 ML IVPB SCH (21:10)
--- NOTE | 2016-12-07 21:37 | CP.PCM.CON ---
History of Present Illness - History of Present Illness History of Present Illness: Infectious Disease Consultation: December 07, 2016 31 yo female who is 6 weeks based on ultrasound. She presented with sudden outset of sharp LLQ abdominal pain. Low grade fevers up to 100.6 F in hospital so far with moderate leukocytosis. The patient with history of preeclampsia during her second . No vaginal bleeding. She has had vomiting and morning sickness. She has not been able to keep down liquids even water at this time. She hasn't had a bowel movement in 3 days. She only realized that she was about 1 week ago. She has a boyfriend and is in a monogamous relationship. PMHx: Genital Herpes, gestational diabetes, history of ectopic , Hypertension, GERDs, prior infections of the kidney PSHx: x 2, salpingectomy secondary to ectopic Allergies: PCN Social Hx: No tobacco, EtOH, or illicit drug use. Active Medications Acetaminophen (Tylenol 325mg Tab) 650 mg PO Q6H PRN PRN Reason: Fever >100.4 F Famotidine (Pepcid) 20 mg IVP DAILY [facility] Last Admin: 12/07/16 14:46 Dose: 20 mg Sodium Chloride (Sodium Chloride 0.9%) 1,000 mls @ 100 mls/hr IV .Q10H [facility] Last Admin: 12/07/16 14:42 Dose: 100 mls/hr Aztreonam (Azactam 1 Gm) 100 mls @ 100 mls/hr IVPB Q8 ANTIONE PRN Reason: Protocol Stop: 12/08/16 06:59 Last Admin: 12/07/16 21:10 Dose: 100 mls/hr Ondansetron HCl (Zofran Inj) 4 mg IVP Q4H PRN PRN Reason: Nausea/Vomiting Family Hx: none given ROS: sudden abdominal pain, fevers, chills, nausea, vomiting. No chest pain, melena , hematuria, hematemesis, hematochezia, depression, anxiety. Past Patient History - Infectious Disease Hx of Infectious Diseases: None - Tetanus Immunizations Tetanus Immunization: Up to Date - Past Social History Smoking Status: Never Smoked Chewing Tobacco Use: No Cigar Use: No Alcohol: None Drugs: Denies Home Situation {Lives}: Alone (with 2 sons 15 and 11) - CARDIAC Hx Cardiac Disorders: Yes Hx Angina: No Hx Hypertension: Yes - PULMONARY Hx Respiratory Disorders: No - NEUROLOGICAL Hx Neurological Disorder: No - HEENT Hx HEENT Problems: No - RENAL Hx Chronic Kidney Disease: No - ENDOCRINE/METABOLIC Hx Endocrine Disorders: No - HEMATOLOGICAL/ONCOLOGICAL Hx Blood Disorders: No - INTEGUMENTARY Hx Dermatological Problems: No - MUSCULOSKELETAL/RHEUMATOLOGICAL Hx Musculoskeletal Disorders: No - GASTROINTESTINAL Hx Gastrointestinal Disorders: Yes Hx Gastroesophageal Reflux: Yes - GENITOURINARY/GYNECOLOGICAL Hx Genitourinary Disorders: Yes Other/Comment: Pre-eclampsia, 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 LMP:: October : 4 (currently ) Para: 2 Termination of : 1 (Ectopic Preg) - PSYCHIATRIC Hx Psychophysiologic Disorder: No Hx Depression: No Hx Emotional Abuse: No Hx Physical Abuse: No Hx Substance Use: No (none) - SURGICAL HISTORY Hx Section: Yes Hx Cholecystectomy: Yes Hx Tonsillectomy: Yes - ANESTHESIA Hx Anesthesia: Yes Hx Anesthesia Reactions: No Hx Malignant Hyperthermia: No Meds Allergies/Adverse Reactions: Allergies Allergy/AdvReac Type Severity Reaction Status Date / Time Penicillins Allergy RASH Verified 12/07/16 15:20 - Medications Medications: Current Medications Acetaminophen (Tylenol 325mg Tab) 650 mg PO Q6H PRN PRN Reason: Fever >100.4 F Famotidine (Pepcid) 20 mg IVP DAILY [facility] Last Admin: 12/07/16 14:46 Dose: 20 mg Sodium Chloride (Sodium Chloride 0.9%) 1,000 mls @ 100 mls/hr IV .Q10H [facility] Last Admin: 12/07/16 14:42 Dose: 100 mls/hr Aztreonam (Azactam 1 Gm) 100 mls @ 100 mls/hr IVPB Q8 ANTIONE PRN Reason: Protocol Stop: 12/08/16 06:59 Ondansetron HCl (Zofran Inj) 4 mg IVP Q4H PRN PRN Reason: Nausea/Vomiting Physical Exam - Constitutional Appears: Non-toxic, No Acute Distress - Head Exam Head Exam: ATRAUMATIC, NORMOCEPHALIC - Eye Exam Eye Exam: EOMI, PERRL Pupil Exam: NORMAL ACCOMODATION, PERRL - ENT Exam ENT Exam: Mucous Membranes Moist, Normal External Ear Exam, TM's Normal Bilaterally - Respiratory Exam Respiratory Exam: Clear to Auscultation Bilateral, NORMAL BREATHING PATTERN. absent: Rales, Rhonchi, Wheezes - Cardiovascular Exam Cardiovascular Exam: Tachycardia, REGULAR RHYTHM, RRR, +S1, +S2 - GI/Abdominal Exam GI & Abdominal Exam: Normal Bowel Sounds, Soft, Tenderness. absent: Distended - Extremities Exam Extremities exam: Positive for: full ROM, normal inspection. Negative for: calf tenderness - Neurological Exam Neurological exam: Alert, CN II-XII Intact, Oriented x3 - Psychiatric Exam Psychiatric exam: Normal Affect, Normal Mood - Skin Additional comments: as above Results - Vital Signs Recent Vital Signs: Last Vital Signs Temp 101.4 F H 12/07/16 16:47 Pulse 110 H 12/07/16 16:47 Resp 20 12/07/16 16:47 BP 126/81 12/07/16 16:47 Pulse Ox 100 12/07/16 16:47 - Labs Result Diagrams: 12/07/16 12:06 12/07/16 12:06 Labs: Laboratory Results - last 24 hr 12/07/16 12/07/16 12/07/16 14:00 14:00 14:40 Urine Color Yellow Urine Appearance Clear Urine pH 7.0 Ur Specific [place] 1.010 Urine Protein Negative Urine Glucose (UA) Negative Urine Ketones 15 H Urine Blood Negative Urine Nitrate Negative Urine Bilirubin Negative Urine Urobilinogen 0.2 Ur Leukocyte Esterase Negative Urine HCG, Qual Positive Urine Opiates Screen Negative Urine Methadone Screen Negative Ur Barbiturates Screen Negative Ur Phencyclidine Scrn Negative Ur Amphetamines Screen Negative U Benzodiazepines Scrn Negative U Oth Cocaine Metabols Negative U Cannabinoids Screen Negative Blood Type Confirm A POSITIVE Assessment & Plan - Assessment and Plan (Free Text) Assessment: 31 yo female who is 6 weeks with sudden onset of LLQ pain. Dehydration. Unable to obtain CT scan of the abdomen due to current status. The patient also has an allergy status to Penicillin. Patient with poor appetite and nausea and vomiting symptoms. Ultrasound only verified the . Started on Aztreonam for antibiotic coverage. Antibiotic options are limited based on PCN allergy and current status. Supportive care. Continue on Aztreonam for now. Thank you for allowing me to participate in the care of the patient, we will follow with you.
--- NOTE | 2016-12-07 22:56 | CP.PCM.PN ---
Subjective - Date & Time of Evaluation Date of Evaluation: 12/07/16 Time of Evaluation: 22:55 - Subjective Subjective: # 22 angiocath was inserted in right hand dorsum. Dx:Poor venous access. Objective - Vital Signs/Intake and Output Vital Signs (last 24 hours): Temp Pulse Resp BP Pulse Ox 101.4 F H 110 H 20 126/81 100 12/07/16 16:47 12/07/16 16:47 12/07/16 16:47 12/07/16 16:47 12/07/16 16:47 Intake and Output: 12/07/16 12/08/16 18:59 06:59 Intake Total 360 Balance 360 - Medications Medications: Current Medications Acetaminophen (Tylenol 325mg Tab) 650 mg PO Q6H PRN PRN Reason: Fever >100.4 F Last Admin: 12/07/16 22:05 Dose: 650 mg Famotidine (Pepcid) 20 mg IVP DAILY [facility] Last Admin: 12/07/16 14:46 Dose: 20 mg Sodium Chloride (Sodium Chloride 0.9%) 1,000 mls @ 100 mls/hr IV .Q10H [facility] Last Admin: 12/07/16 14:42 Dose: 100 mls/hr Aztreonam (Azactam 1 Gm) 100 mls @ 100 mls/hr IVPB Q8 ANTIONE PRN Reason: Protocol Stop: 12/08/16 06:59 Last Admin: 12/07/16 21:10 Dose: 100 mls/hr Aztreonam (Azactam 1 Gm) 100 mls @ 100 mls/hr IVPB Q8 ANTIONE PRN Reason: Protocol Ondansetron HCl (Zofran Inj) 4 mg IVP Q4H PRN PRN Reason: Nausea/Vomiting - Labs Labs: PT 10.8 Seconds (9.9-11.8) 12/07/16 12:06 INR 1.00 (0.93-1.08) 12/07/16 12:06 APTT 25.7 Seconds (23.7-30.8) 12/07/16 12:06
[2016-12-08] MEDS: Aztreonam 1 Gm in NS 100mL 100 ML IVPB SCH ×5 (01:32→22:16)
--- NOTE | 2016-12-08 07:50 | CP.PCM.PN ---
Subjective - Date & Time of Evaluation Date of Evaluation: 12/08/16 Time of Evaluation: 07:46 - Subjective Subjective: Surgery: Dr. Moreno Patient seen and examined. Patient states she feels better. Reports some mucous production but pain in the abdomen has resolved. She is tolerating clear liquids. She is asking when she can go home. Objective - Vital Signs/Intake and Output Vital Signs (last 24 hours): Temp Pulse Resp BP Pulse Ox 102.6 F H 110 H 20 126/81 100 12/08/16 03:24 12/07/16 16:47 12/07/16 16:47 12/07/16 16:47 12/07/16 16:47 Intake and Output: 12/08/16 12/08/16 06:59 18:59 Intake Total 360 0 Balance 360 0 - Medications Medications: Current Medications Acetaminophen (Tylenol 325mg Tab) 650 mg PO Q6H PRN PRN Reason: Fever >100.4 F Last Admin: 12/08/16 03:24 Dose: 650 mg Famotidine (Pepcid) 20 mg IVP DAILY [facility] Last Admin: 12/07/16 14:46 Dose: 20 mg Sodium Chloride (Sodium Chloride 0.9%) 1,000 mls @ 100 mls/hr IV .Q10H [facility] Last Admin: 12/07/16 14:42 Dose: 100 mls/hr Aztreonam (Azactam 1 Gm) 100 mls @ 100 mls/hr IVPB Q8 ANTIONE PRN Reason: Protocol Last Admin: 12/08/16 01:32 Dose: 100 mls/hr Ondansetron HCl (Zofran Inj) 4 mg IVP Q4H PRN PRN Reason: Nausea/Vomiting - Labs Labs: PT 10.8 Seconds (9.9-11.8) 12/07/16 12:06 INR 1.00 (0.93-1.08) 12/07/16 12:06 APTT 25.7 Seconds (23.7-30.8) 12/07/16 12:06 - Constitutional Appears: Non-toxic, No Acute Distress - Head Exam Head Exam: ATRAUMATIC, NORMOCEPHALIC - Eye Exam Eye Exam: EOMI, Normal appearance - ENT Exam ENT Exam: Mucous Membranes Moist - Respiratory Exam Respiratory Exam: NORMAL BREATHING PATTERN. absent: Respiratory Distress - Cardiovascular Exam Cardiovascular Exam: Tachycardia, REGULAR RHYTHM - GI/Abdominal Exam GI & Abdominal Exam: Soft. absent: Distended, Guarding, Rigid, Tenderness, Rebound - Extremities Exam Extremities Exam: Normal Inspection. absent: Calf Tenderness - Neurological Exam Neurological Exam: Alert, Awake - Psychiatric Exam Psychiatric exam: Normal Affect, Normal Mood - Skin Skin Exam: Dry, Normal Color, Warm Assessment and Plan - Assessment and Plan (Free Text) Assessment: 31 y/o female w/ LLQ pain resolved Plan: -patient febrile this am of 102.6, origin? -recommending OBGYN evaluation and f/u -ok for regular diet from our standpoint -colace/suppository for constipation -no acute surgical intervention at this time -will discuss w/ Dr. Josh Sotelo PGY1
[2016-12-08 08:09] LABS: ALKALINE PHOSPHATASE 67 U/L (38-133); ALT/SGPT 34 U/L (7-56); AST/SGOT 29 U/L (15-39); BLOOD UREA NITROGEN 6 mg/dL (7-21); CARBON DIOXIDE 24 mmol/L (21-33); CHLORIDE 103 mmol/L (98-107); GFR AFRICAN-AMERICAN > 60; GLUCOSE,RANDOM 95 mg/dL (70-110); POTASSIUM 3.6 mmol/L (3.6-5.0); SODIUM 136 mmol/L (132-148); TOTAL PROTEIN 7.9 g/dL (5.8-8.3)
[2016-12-08] MEDS: Sodium Chloride 0.9% 1,000 ML IV SCH ×3 (08:29→20:30)
[2016-12-08 09:39] LABS: HEMATOCRIT 38.6 % (36.0-48.0); MEAN CELL VOLUME 86.9 fL (80.0-105.0); MEAN CORPUSCULAR HEMOGLOBIN 30.4 pg (25.0-35.0); MEAN PLATELET VOLUME 10.2 fl (7.0-11.0); RED CELL DISTRIBUTION WIDTH 13.3 % (11.5-14.5); WHITE BLOOD COUNT 16.5 10^3/ul (4.5-11.0)
--- NOTE | 2016-12-08 10:21 | CP.PCM.PN ---
<Osvaldo Camarillo - Last Filed: 12/08/16 21:53> Subjective - Date & Time of Evaluation Date of Evaluation: 12/08/16 Time of Evaluation: 07:00 - Subjective Subjective: 31 year old female who is 6 weeks with LLQ abdominal pain, which radiates to the back and is associated with nausea. Overnight, pt. spiked a fever of 102.6 which was relieved with Tylenol. Overall she stated that she is doing much better and wanted to go home. She also complained of mild headache , dizziness, and sore throat with no cough. She denies chest pain, difficulty breathing, nausea, vomiting, or diarrhea. Objective - Vital Signs/Intake and Output Vital Signs (last 24 hours): Temp Pulse Resp BP Pulse Ox 99.1 F 85 19 110/73 99 12/08/16 06:00 12/08/16 06:00 12/08/16 06:00 12/08/16 06:00 12/08/16 06:00 Intake and Output: 12/08/16 12/08/16 06:59 18:59 Intake Total 360 0 Balance 360 0 - Medications Medications: Current Medications Acetaminophen (Tylenol 325mg Tab) 650 mg PO Q6H PRN PRN Reason: Fever >100.4 F Last Admin: 12/08/16 09:32 Dose: 650 mg Docusate Sodium (Colace) 100 mg PO BID [facility] Last Admin: 12/08/16 09:32 Dose: 100 mg Famotidine (Pepcid) 20 mg IVP DAILY [facility] Last Admin: 12/08/16 09:32 Dose: 20 mg Sodium Chloride (Sodium Chloride 0.9%) 1,000 mls @ 100 mls/hr IV .Q10H [facility] Last Admin: 12/08/16 08:29 Dose: Not Given Aztreonam (Azactam 1 Gm) 100 mls @ 100 mls/hr IVPB Q8 [facility] PRN Reason: Protocol Last Admin: 12/08/16 08:28 Dose: 100 mls/hr Ondansetron HCl (Zofran Inj) 4 mg IVP Q4H PRN PRN Reason: Nausea/Vomiting - Labs Labs: 12/08/16 07:00 12/08/16 07:00 PT 10.8 Seconds (9.9-11.8) 12/07/16 12:06 INR 1.00 (0.93-1.08) 12/07/16 12:06 APTT 25.7 Seconds (23.7-30.8) 12/07/16 12:06 - Constitutional Appears: Non-toxic, No Acute Distress - Head Exam Head Exam: ATRAUMATIC, NORMOCEPHALIC - Eye Exam Eye Exam: EOMI - ENT Exam ENT Exam: Mucous Membranes Moist - Respiratory Exam Respiratory Exam: Rhonchi, NORMAL BREATHING PATTERN - Cardiovascular Exam Cardiovascular Exam: REGULAR RHYTHM, RRR, +S1, +S2. absent: JVD - GI/Abdominal Exam GI & Abdominal Exam: Soft, Tenderness (left upper quadrant), Normal Bowel Sounds - Extremities Exam Extremities Exam: Full ROM. absent: Joint Swelling, Pedal Edema, Tenderness - Back Exam Back Exam: NORMAL INSPECTION - Neurological Exam Neurological Exam: Alert, Awake, CN II-XII Intact, Normal Gait, Oriented x3 - Psychiatric Exam Psychiatric exam: Normal Affect, Normal Mood - Skin Skin Exam: Dry, Intact, Normal Color, Warm Assessment and Plan - Assessment and Plan (Free Text) Assessment: 31 year old female who is 6 weeks presents with sharp LLQ abdominal pain and fevers. Gastritis vs Entertitis vs PID Plan: Enteritis Pt had fever of 102.6 overnight Luekocytosis Blood Culture - No Growth after 24hrs HIV - rec Influenza - negative Pt. reported small BM this morning and tolerated diet Aztreonam 1gm IV q8 IV fluids 100ml/hr Zofran 4mg q4 prn Pepcid 20mg daily Tylenol 650mg q6 prn for pain/fever Morphine for intractable pain ID consult - Dr. Triplett -appreciate recs -cont aztrenam -cont current treatment Surgery consult - Dr. Alston -appreciate recs -no acute surgical intervention at this time PID UA postive for ketones Urine Culture - rec G/C screen - rec Pelvic Exam in ED unremarkable, no vaginal bleeding or discharge Transvaginal US - please see full report -Single Live intrauterine preg. 6wks 4days HR 140bpm -Ovaries - No masses, normal flow -Cervix - Long and closed. no cervical abnormality seen OB consult - Dr. Garcia -appreciate recs -findings not consistent with PID -cont current treatment PPX SCD's for DVT ppx Dispo Drug Screen negative <Giselle Iyer - Last Filed: 12/09/16 15:02> Objective - Vital Signs/Intake and Output Vital Signs (last 24 hours): Temp Pulse Resp BP Pulse Ox 98.8 F 93 H 19 110/71 99 12/09/16 07:21 12/09/16 07:21 12/09/16 07:21 12/09/16 07:21 12/09/16 07:21 Intake and Output: 12/09/16 12/09/16 06:59 18:59 Intake Total 120 Balance 120 - Medications Medications: Current Medications Acetaminophen (Tylenol 325mg Tab) 650 mg PO Q6H PRN PRN Reason: Fever >100.4 F Last Admin: 12/08/16 17:05 Dose: 650 mg Famotidine (Pepcid) 20 mg IVP DAILY [facility] Last Admin: 12/09/16 09:01 Dose: 20 mg Sodium Chloride (Sodium Chloride 0.9%) 1,000 mls @ 100 mls/hr IV .Q10H [facility] Last Admin: 12/09/16 11:30 Dose: 100 mls/hr Aztreonam (Azactam 1 Gm) 100 mls @ 100 mls/hr IVPB Q8 ANTIONE PRN Reason: Protocol Last Admin: 12/09/16 13:47 Dose: 100 mls/hr Ondansetron HCl (Zofran Inj) 4 mg IVP Q4H PRN PRN Reason: Nausea/Vomiting Last Admin: 12/09/16 03:41 Dose: 4 mg - Labs Labs: 12/09/16 07:57 PT 10.8 Seconds (9.9-11.8) 12/07/16 12:06 INR 1.00 (0.93-1.08) 12/07/16 12:06 APTT 25.7 Seconds (23.7-30.8) 12/07/16 12:06 Attending/Attestation - Attestation I have personally seen and examined this patient.: Yes I have fully participated in the care of the patient.: Yes I have reviewed all pertinent clinical information, including history, physical exam and plan: Yes Notes (Text): 12/09/16 14:58 attending note; patient seen and examined With the resident. patient is a 31-year-old female admitted with diffuse abdominal pain. Transvaginal ultrasound showed intra-atrial of 6 weeks and 4 days. currently abdominal pain is resolved. Had a MAXIMUM TEMPERATURE 103 this morning. Currently no GI/ symptoms. denies any diarrhea. Denies any urinary symptoms. Clinically nontoxic. complaining of nausea. continue Zofran. Continue IV fluids. Monitor for fever. Surgery evaluation with Dr. Moreno appreciated. ID evaluation DR. TRIPLETT apprecited. Patient is allergic to penicillin. Started on IV Azactam. Case discussed with MANAGER RETIREMENT Dr. Garcia in detail. upon discharge the patient will follow up with PMD DR. Fowler.
--- NOTE | 2016-12-08 15:34 | CP.PCM.PN ---
Subjective - Date & Time of Evaluation Date of Evaluation: 12/08/16 Time of Evaluation: 13:15 - Subjective Subjective: Infectious Disease Follow Up: December 08, 2016 31 yo female who is 6 weeks based on ultrasound. She presented with sudden outset of sharp LLQ abdominal pain. Low grade fevers up to 100.6 F in hospital so far with moderate leukocytosis. The patient with history of preeclampsia during her second . No vaginal bleeding. She has had vomiting and morning sickness. She has not been able to keep down liquids even water at this time. She hasn't had a bowel movement in 3 days. She only realized that she was about 1 week ago. She has a boyfriend and is in a monogamous relationship. Patient had fevers overnight up to 102.6 F. The patient stating that she wants to go home. Objective - Vital Signs/Intake and Output Vital Signs (last 24 hours): Temp Pulse Resp BP Pulse Ox 99.1 F 85 19 110/73 99 12/08/16 06:00 12/08/16 06:00 12/08/16 06:00 12/08/16 06:00 12/08/16 06:00 Intake and Output: 12/08/16 12/08/16 06:59 18:59 Intake Total 360 600 Balance 360 600 - Medications Medications: Current Medications Acetaminophen (Tylenol 325mg Tab) 650 mg PO Q6H PRN PRN Reason: Fever >100.4 F Last Admin: 12/08/16 09:32 Dose: 650 mg Famotidine (Pepcid) 20 mg IVP DAILY [facility] Last Admin: 12/08/16 09:32 Dose: 20 mg Sodium Chloride (Sodium Chloride 0.9%) 1,000 mls @ 100 mls/hr IV .Q10H [facility] Last Admin: 12/08/16 13:09 Dose: 100 mls/hr Aztreonam (Azactam 1 Gm) 100 mls @ 100 mls/hr IVPB Q8 [facility]E PRN Reason: Protocol Last Admin: 12/08/16 13:08 Dose: 100 mls/hr Ondansetron HCl (Zofran Inj) 4 mg IVP Q4H PRN PRN Reason: Nausea/Vomiting Last Admin: 12/08/16 13:09 Dose: 4 mg - Labs Labs: 12/08/16 07:00 12/08/16 07:00 PT 10.8 Seconds (9.9-11.8) 12/07/16 12:06 INR 1.00 (0.93-1.08) 12/07/16 12:06 APTT 25.7 Seconds (23.7-30.8) 12/07/16 12:06 - Constitutional Appears: Non-toxic, No Acute Distress, Chronically Ill - Head Exam Head Exam: ATRAUMATIC, NORMOCEPHALIC - Eye Exam Eye Exam: EOMI, PERRL Pupil Exam: NORMAL ACCOMODATION, PERRL - ENT Exam ENT Exam: Mucous Membranes Moist, Normal External Ear Exam, TM's Normal Bilaterally - Neck Exam Neck Exam: Full ROM, Normal Inspection - Respiratory Exam Respiratory Exam: Clear to Ausculation Bilateral, NORMAL BREATHING PATTERN. absent: Rales, Rhonchi, Wheezes - Cardiovascular Exam Cardiovascular Exam: Tachycardia, REGULAR RHYTHM, RRR, +S1, +S2 - GI/Abdominal Exam GI & Abdominal Exam: Soft, Normal Bowel Sounds. absent: Distended, Tenderness - Extremities Exam Extremities Exam: Full ROM, Normal Inspection - Neurological Exam Neurological Exam: Alert, Awake, CN II-XII Intact, Oriented x3 - Psychiatric Exam Psychiatric exam: Normal Affect, Normal Mood - Skin Skin Exam: Intact, Normal Color Assessment and Plan - Assessment and Plan (Free Text) Assessment: 31 yo female who is 6 weeks with sudden onset of LLQ pain. Dehydration. Unable to obtain CT scan of the abdomen due to current status. The patient also has an allergy status to Penicillin. Patient with poor appetite and nausea and vomiting symptoms. Ultrasound only verified the . Started on Aztreonam for antibiotic coverage. Antibiotic options are limited based on PCN allergy and current status. Supportive care. Continue on Aztreonam for now. Still with fevers overnight up to 102.6 F. Cultures pending. Thank you for allowing me to participate in the care of the patient, we will follow with you.
--- NOTE | 2016-12-08 20:56 | CON ---
DATE: 12/08/2016 HISTORY OF PRESENT ILLNESS: This is a 31-year-old -1-1-2 with a last menstrual period of 08/18/2016 who woke up around 4:00 a.m. on 12/07/2016 with left lower quadrant pain, nausea and vomiting. The patient reports that she has also been vomiting since the end of September and in October. The patient denies vaginal bleeding and dysuria. On admission, her temperature was 100.6. She was also noted to have an elevated white blood cell count 15.4. An ultrasound revealed an intrauterine measuring 6 weeks and 4 days, normal adnexa. The patient's T-max was 102.6 at 3:24 this morning. The patient also reported that she had a bowel movement a few days prior and may have had a small bowel movement on the morning when she woke up and was vomiting. Of note , she reports that she usually has monthly periods that last 5 days. She reports that she had a period for 1 day in September and in October and no period in November. Of note, patient denies any recent tattoos, recent travel, and sick contacts. Pt also reports that she is feeling better from when she was first admitted. PAST MEDICAL HISTORY: She has history of hypertension, GERD, elevated cholesterol, eclampsia, and HSV2. PAST SURGICAL HISTORY: In 2009, she underwent a laparoscopic left salpingectomy for an ectopic . In 03/2002 she underwent a primary section and in 01/2006 she underwent a section at 32 weeks. OBSTETRIC HISTORY: In 03/10 she underwent a primary at term of a male infant. She reports that she had a kidney infection during that . In 01/2006 she underwent a repeat section at 32 weeks. That was complicated by eclampsia and patient reports she was in a coma for 3 weeks due to the preeclampsia. In 2009, she had an ectopic which was treated with a laparoscopic left salpingectomy. PAST GYNECOLOGICAL HISTORY: The patient reports that she usually has regular periods that last for 5 days. 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 SOCIAL HISTORY: The patient denies tobacco, alcohol, and illicit drug use. FAMILY HISTORY: Her grandmother had some kind of cancer, she does not know which one and her mother has diabetes. MEDICATIONS: Acetaminophen 650 p.o. q. 6 p.r.n., aztreonam 1 gram IV q. 8, Pepcid 20 mg IV daily, ondansetron 4 mg q. 4 p.r.n. She is also receiving normal saline. ALLERGIES: PENICILLIN CAUSES A RASH. PHYSICAL EXAMINATION: VITAL SIGNS: Afebrile. Vital signs stable. GENERAL: The patient appears comfortable, sitting up in bed, no acute distress , nontoxic. ABDOMEN: Soft. Nontender. No rebound or guarding. EXTREMITIES: Nontender. GENITOURINARY: Speculum exam reveals a normal-appearing white discharge. VAGINAL: There was no cervical motion tenderness, normal size, mobile uterus. No adnexal masses or tenderness. LABORATORY DATA: On admission, white count was 15.4 and today it is 16.5, hemoglobin is stable at 13.5. Urinalysis is essentially negative. Toxicology screen is negative. Influenza type A and B were negative. 12/07/2016 preliminary blood cultures are no growth after 24 hours. Chlamydia and gonorrhea are pending and HIV is pending and a urine culture was also sent that is not back yet. ASSESSMENT AND PLAN: This is a 31-year-old C3H4-2-4-6 who has an intrauterine at 6+ weeks who presents with fevers and an elevated white count. The patient may have gastritis or enteritis. Her exam findings are not consistent with PID. Gonorrhea and chlamydia cultures are pending. Will follow results. Pineda Garcia MD cc: [id number] TT: 12/08/2016 20:56:05 Confirmation # [id number] Dictation # [id number]
[2016-12-08] MEDS: Sodium Chloride 0.9% 1,000 ML IV STA (22:17)
[2016-12-09] MEDS: Aztreonam 1 Gm in NS 100mL 100 ML IVPB SCH ×3 (05:20→22:07)
--- NOTE | 2016-12-09 07:11 | CP.PCM.PN ---
Subjective - Date & Time of Evaluation Date of Evaluation: 12/09/16 Time of Evaluation: 07:06 - Subjective Subjective: Surgery: Dr. Moreno Patient doing well today. She reports resolution of the L sided abdominal pain. She denies fever overnight. She reports 1 BM yesterday which was normal. She is tolerating diet but still has nausea w/ occasional reflux/mucous production. NO acute events overnight. Objective - Vital Signs/Intake and Output Vital Signs (last 24 hours): Temp Pulse Resp BP Pulse Ox 98.5 F 105 H 18 114/74 100 12/08/16 17:16 12/08/16 18:00 12/08/16 17:16 12/08/16 17:16 12/08/16 17:16 Intake and Output: 12/09/16 12/09/16 06:59 18:59 Intake Total 120 Balance 120 - Medications Medications: Current Medications Acetaminophen (Tylenol 325mg Tab) 650 mg PO Q6H PRN PRN Reason: Fever >100.4 F Last Admin: 12/08/16 17:05 Dose: 650 mg Famotidine (Pepcid) 20 mg IVP DAILY [facility] Last Admin: 12/08/16 09:32 Dose: 20 mg Sodium Chloride (Sodium Chloride 0.9%) 1,000 mls @ 100 mls/hr IV .Q10H [facility] Last Admin: 12/08/16 20:30 Dose: 100 mls/hr Aztreonam (Azactam 1 Gm) 100 mls @ 100 mls/hr IVPB Q8 [facility]IONE PRN Reason: Protocol Last Admin: 12/09/16 05:20 Dose: 100 mls/hr Ondansetron HCl (Zofran Inj) 4 mg IVP Q4H PRN PRN Reason: Nausea/Vomiting Last Admin: 12/09/16 03:41 Dose: 4 mg - Labs Labs: PT 10.8 Seconds (9.9-11.8) 12/07/16 12:06 INR 1.00 (0.93-1.08) 12/07/16 12:06 APTT 25.7 Seconds (23.7-30.8) 12/07/16 12:06 - Constitutional Appears: Non-toxic, No Acute Distress - Head Exam Head Exam: ATRAUMATIC, NORMOCEPHALIC - Eye Exam Eye Exam: EOMI, Normal appearance - ENT Exam ENT Exam: Mucous Membranes Moist - Respiratory Exam Respiratory Exam: NORMAL BREATHING PATTERN. absent: Respiratory Distress - Cardiovascular Exam Cardiovascular Exam: Tachycardia, REGULAR RHYTHM - GI/Abdominal Exam GI & Abdominal Exam: Soft. absent: Distended, Tenderness, Rebound - Neurological Exam Neurological Exam: Alert - Psychiatric Exam Psychiatric exam: Normal Affect, Normal Mood - Skin Skin Exam: Dry, Normal Color, Warm Assessment and Plan - Assessment and Plan (Free Text) Assessment: 31 y/o female at 6w6d EGA via u/s with Left abdominal and flank pain and fever, resolved Plan: -appreciate TIP CEMENTER evaluation -cont reg diet -symptoms resolved -if conts to tolerate diet, patient is cleared from surgical standpoint -no intervention at this time -patient needs to f/u as outpatient to OBGYN for routine care -further recs per Dr. Josh Anaya PGY1
[2016-12-09 08:00] LABS: ADD MANUAL DIFF? NO
[2016-12-09 08:05] LABS: BASO # 0.02 K/mm3 (0.0-2.0); BASO % 0.1 % (0.0-3.0); EOS # 0.1 (0.0-0.7); EOS % 0.9 % (1.5-5.0); GRAN # 12.56 (1.4-6.5); GRAN % 78.1 % (50.0-68.0); HEMATOCRIT 33.2 % (36.0-48.0); LYMPH # 2.3 (1.2-3.4); LYMPH % 14.1 % (22.0-35.0); MEAN CELL VOLUME 84.7 fL (80.0-105.0); MEAN CORPUSCULAR HEMOGLOBIN 29.8 pg (25.0-35.0); MEAN CORPUSCULAR HGB CONC 35.2 g/dl (31.0-37.0); MEAN PLATELET VOLUME 9.4 fl (7.0-11.0); MONO # 1.1 (0.1-0.6); MONO % 6.8 % (1.0-6.0); PLATELET COUNT 302 10^3/uL (120.0-450.0); RED CELL DISTRIBUTION WIDTH 13.2 % (11.5-14.5); WHITE BLOOD COUNT 16.1 10^3/ul (4.5-11.0)
[2016-12-09] MEDS: Sodium Chloride 0.9% 1,000 ML IV SCH ×2 (11:30→17:53)
--- NOTE | 2016-12-09 13:05 | CP.PCM.PN ---
<Galilea Ferrer - Last Filed: 12/09/16 13:02> Subjective - Date & Time of Evaluation Date of Evaluation: 12/09/16 Time of Evaluation: 13:02 - Subjective Subjective: HOSPITALISTS PROGRESS NOTE Pt is seen and examined at bedside. No acute events voernight. Patient states that she is vomiting and is nauseous. Patient also complains of throat pain with swallowing and with palpation but she has full ROM of neck. Patient denie shaving any CP, SOB, abd pain, f,c. Patient has been afebrile overnight. Objective - Vital Signs/Intake and Output Vital Signs (last 24 hours): Temp Pulse Resp BP Pulse Ox 98.8 F 93 H 19 110/71 99 12/09/16 07:21 12/09/16 07:21 12/09/16 07:21 12/09/16 07:21 12/09/16 07:21 Intake and Output: 12/09/16 12/09/16 06:59 18:59 Intake Total 120 Balance 120 - Medications Medications: Current Medications Acetaminophen (Tylenol 325mg Tab) 650 mg PO Q6H PRN PRN Reason: Fever >100.4 F Last Admin: 12/08/16 17:05 Dose: 650 mg Famotidine (Pepcid) 20 mg IVP DAILY [facility] Last Admin: 12/09/16 09:01 Dose: 20 mg Sodium Chloride (Sodium Chloride 0.9%) 1,000 mls @ 100 mls/hr IV .Q10H [facility] Last Admin: 12/08/16 20:30 Dose: 100 mls/hr Aztreonam (Azactam 1 Gm) 100 mls @ 100 mls/hr IVPB Q8 [facility] PRN Reason: Protocol Last Admin: 12/09/16 05:20 Dose: 100 mls/hr Ondansetron HCl (Zofran Inj) 4 mg IVP Q4H PRN PRN Reason: Nausea/Vomiting Last Admin: 12/09/16 03:41 Dose: 4 mg - Labs Labs: 12/09/16 07:57 PT 10.8 Seconds (9.9-11.8) 12/07/16 12:06 INR 1.00 (0.93-1.08) 12/07/16 12:06 APTT 25.7 Seconds (23.7-30.8) 12/07/16 12:06 - Constitutional Appears: Non-toxic, No Acute Distress - Eye Exam Eye Exam: EOMI - ENT Exam ENT Exam: Mucous Membranes Moist Additional comments: no exudates or erythema noted in throat and on tonsils - Neck Exam Neck Exam: Tenderness Additional comments: tenderness noted on lateral aspect of neck. Full ROM. NO LAD - Respiratory Exam Respiratory Exam: Rhonchi, Wheezes. absent: Accessory Muscle Use, Rales, Respiratory Distress - Cardiovascular Exam Cardiovascular Exam: REGULAR RHYTHM, +S1, +S2. absent: Gallop, Rubs, Murmur - GI/Abdominal Exam GI & Abdominal Exam: Soft, Normal Bowel Sounds. absent: Distended, Firm, Guarding, Rigid, Tenderness - Extremities Exam Extremities Exam: absent: Pedal Edema, Tenderness - Neurological Exam Neurological Exam: Alert, Awake, Oriented x3 - Psychiatric Exam Psychiatric exam: Normal Affect, Normal Mood - Skin Skin Exam: Dry, Intact, Normal Color, Warm Assessment and Plan - Assessment and Plan (Free Text) Assessment: 31 year old female who is 6 weeks presents with sharp LLQ abdominal pain and fevers. Gastritis vs Entertitis vs PID Plan: Enteritis Luekocytosis still present but pt has been afebrile overnight and this morning Blood Culture - No Growth after 24hrs HIV - non reactive Influenza - negative Aztreonam 1gm IV q8 IV fluids 100ml/hr Zofran 4mg q4 prn Pepcid 20mg daily Tylenol 650mg q6 prn for pain/fever ID consult - Dr. Triplett -appreciate recs -cont aztrenam -cont current treatment Surgery consult - Dr. Alston -appreciate recs -no acute surgical intervention at this time PID UA postive for ketones Urine Culture - pending Gonorrhea and chlamydia negative Pelvic Exam in ED unremarkable, no vaginal bleeding or discharge Transvaginal US - please see full report -Single Live intrauterine preg. 6wks 4days HR 140bpm -Ovaries - No masses, normal flow -Cervix - Long and closed. no cervical abnormality seen OB consult - Dr. Garcia -appreciate recs -findings not consistent with PID -cont current treatment PPX SCD's for DVT ppx Case discussed with attending, Dr. Iyer <Giselle Iyer - Last Filed: 12/09/16 15:46> Objective - Vital Signs/Intake and Output Vital Signs (last 24 hours): Temp Pulse Resp BP Pulse Ox 98.8 F 93 H 19 110/71 99 12/09/16 07:21 12/09/16 07:21 12/09/16 07:21 12/09/16 07:21 12/09/16 07:21 Intake and Output: 12/09/16 12/09/16 06:59 18:59 Intake Total 120 925 Output Total 3 Balance 120 922 - Medications Medications: Current Medications Acetaminophen (Tylenol 325mg Tab) 650 mg PO Q6H PRN PRN Reason: Fever >100.4 F Last Admin: 12/08/16 17:05 Dose: 650 mg Famotidine (Pepcid) 20 mg IVP DAILY [facility] Last Admin: 12/09/16 09:01 Dose: 20 mg Sodium Chloride (Sodium Chloride 0.9%) 1,000 mls @ 100 mls/hr IV .Q10H [facility] Last Admin: 12/09/16 11:30 Dose: 100 mls/hr Aztreonam (Azactam 1 Gm) 100 mls @ 100 mls/hr IVPB Q8 [facility]E PRN Reason: Protocol Last Admin: 12/09/16 13:47 Dose: 100 mls/hr Ondansetron HCl (Zofran Inj) 4 mg IVP Q4H PRN PRN Reason: Nausea/Vomiting Last Admin: 12/09/16 03:41 Dose: 4 mg - Labs Labs: 12/09/16 07:57 PT 10.8 Seconds (9.9-11.8) 12/07/16 12:06 INR 1.00 (0.93-1.08) 12/07/16 12:06 APTT 25.7 Seconds (23.7-30.8) 12/07/16 12:06 Attending/Attestation - Attestation I have personally seen and examined this patient.: Yes I have fully participated in the care of the patient.: Yes I have reviewed all pertinent clinical information, including history, physical exam and plan: Yes Notes (Text): 12/09/16 15:40 attending note; patient seen and examined With the resident. patient is a 31-year-old female admitted with diffuse abdominal pain. currently abdominal pain is resolved. afebrile and nontoxic. Complaining of and vomiting this morning. continue Zofran. continue IV fluids for hydration. Complaining of mild throat discomfort. Currently no GI/ symptoms. denies any diarrhea. Denies any urinary symptoms. Clinically nontoxic. leukocytosis; still with elevated white count. HIV, chlamydia, gonorrhea is negative. Influenza is negative. blood culture is negative. Urine culture showed mixed organism. Surgery evaluation with Dr. Moreno appreciated. ID evaluation DR. TRIPLETT apprecited. Patient is allergic to penicillin. continue IV Azactam. TAPING SUPERVISOR evaluation with Dr. Garcia appreciated. Monitor leukocytosis. upon discharge the patient will follow up with PMD DR. Fowler. 12/09/16 15:46
--- NOTE | 2016-12-09 18:43 | CP.PCM.PN ---
Subjective - Date & Time of Evaluation Date of Evaluation: 12/09/16 Time of Evaluation: 16:15 - Subjective Subjective: Infectious Disease Follow Up: December 09, 2016 31 yo female who is 6 weeks based on ultrasound. She presented with sudden outset of sharp LLQ abdominal pain. Low grade fevers up to 100.6 F in hospital so far with moderate leukocytosis. The patient with history of preeclampsia during her second . No vaginal bleeding. She has had vomiting and morning sickness. She has not been able to keep down liquids even water at this time. She hasn't had a bowel movement in 3 days. She only realized that she was about 1 week ago. She has a boyfriend and is in a monogamous relationship. Patient had fevers up to 102.6 F but afebrile the past 24 hours. The patient stating that she wants to go home. The patient antibiotic options are very limited due to her allergies and her . The patient is on Aztreonam currently. Assumed UTI but the urine cultures are showing multiple organism growth. Objective - Vital Signs/Intake and Output Vital Signs (last 24 hours): Temp Pulse Resp BP Pulse Ox 98.2 F 90 20 122/73 99 12/09/16 16:52 12/09/16 16:52 12/09/16 16:52 12/09/16 16:52 12/09/16 16:52 Intake and Output: 12/09/16 12/09/16 06:59 18:59 Intake Total 120 925 Output Total 3 Balance 120 922 - Medications Medications: Current Medications Acetaminophen (Tylenol 325mg Tab) 650 mg PO Q6H PRN PRN Reason: Fever >100.4 F Last Admin: 12/08/16 17:05 Dose: 650 mg Famotidine (Pepcid) 20 mg IVP DAILY [facility] Last Admin: 12/09/16 09:01 Dose: 20 mg Sodium Chloride (Sodium Chloride 0.9%) 1,000 mls @ 100 mls/hr IV .Q10H [facility] Last Admin: 12/09/16 17:53 Dose: Not Given Aztreonam (Azactam 1 Gm) 100 mls @ 100 mls/hr IVPB Q8 ANTIONE PRN Reason: Protocol Last Admin: 12/09/16 13:47 Dose: 100 mls/hr Ondansetron HCl (Zofran Inj) 4 mg IVP Q4H PRN PRN Reason: Nausea/Vomiting Last Admin: 12/09/16 17:53 Dose: 4 mg - Labs Labs: 12/09/16 07:57 PT 10.8 Seconds (9.9-11.8) 12/07/16 12:06 INR 1.00 (0.93-1.08) 12/07/16 12:06 APTT 25.7 Seconds (23.7-30.8) 12/07/16 12:06 - Constitutional Appears: Non-toxic, No Acute Distress - Head Exam Head Exam: ATRAUMATIC, NORMOCEPHALIC - Eye Exam Eye Exam: EOMI, PERRL Pupil Exam: NORMAL ACCOMODATION, PERRL - ENT Exam ENT Exam: Mucous Membranes Moist, Normal External Ear Exam, TM's Normal Bilaterally - Neck Exam Neck Exam: Full ROM, Normal Inspection - Respiratory Exam Respiratory Exam: Clear to Ausculation Bilateral, NORMAL BREATHING PATTERN. absent: Rales, Rhonchi, Wheezes - Cardiovascular Exam Cardiovascular Exam: Tachycardia, REGULAR RHYTHM, RRR, +S1, +S2 - GI/Abdominal Exam GI & Abdominal Exam: Soft, Normal Bowel Sounds. absent: Distended, Tenderness - Extremities Exam Extremities Exam: Full ROM, Normal Inspection - Neurological Exam Neurological Exam: Alert, Awake, CN II-XII Intact, Oriented x3 - Psychiatric Exam Psychiatric exam: Normal Affect, Normal Mood - Skin Skin Exam: Intact, Normal Color Assessment and Plan - Assessment and Plan (Free Text) Assessment: 31 yo female who is 6 weeks with sudden onset of LLQ pain. Dehydration. Unable to obtain CT scan of the abdomen due to current status. The patient also has an allergy status to Penicillin. Patient with poor appetite and nausea and vomiting symptoms. Ultrasound only verified the . Continue on Aztreonam for antibiotic coverage. Antibiotic options are limited based on PCN allergy and current status. Supportive care. Continue on Aztreonam for now. Last fevers over 24 hours ago up to 102.6 F. Cultures pending... blood cultures negative at 24 hours. Urine cultures with polymicrobial growth. Afebrile the past 24 hours. Recheck urine culture and analysis. Thank you for allowing me to participate in the care of the patient, we will follow with you.
[2016-12-10] MEDS: Sodium Chloride 0.9% 1,000 ML IV SCH ×2 (05:18→12:35)
[2016-12-10] MEDS: Aztreonam 1 Gm in NS 100mL 100 ML IVPB SCH ×3 (05:18→21:41)
[2016-12-10 07:20] LABS: HEMATOCRIT 34.2 % (36.0-48.0); MEAN CELL VOLUME 84.7 fL (80.0-105.0); MEAN CORPUSCULAR HEMOGLOBIN 30.2 pg (25.0-35.0); MEAN CORPUSCULAR HGB CONC 35.7 g/dl (31.0-37.0); MEAN PLATELET VOLUME 9.4 fl (7.0-11.0); WHITE BLOOD COUNT 10.1 10^3/ul (4.5-11.0)
[2016-12-10 08:09] LABS: ALB/GLOB RATIO 0.9 (1.1-1.8); ALKALINE PHOSPHATASE 65 U/L (38-133); ALT/SGPT 27 U/L (7-56); AST/SGOT 19 U/L (15-39); BILIRUBIN,TOTAL 0.5 mg/dL (0.2-1.3); BLOOD UREA NITROGEN 6 mg/dL (7-21); CALCIUM 8.8 mg/dL (8.4-10.5); CARBON DIOXIDE 26 mmol/L (21-33); CHLORIDE 105 mmol/L (98-107); GFR AFRICAN-AMERICAN > 60; GLUCOSE,RANDOM 83 mg/dL (70-110); POTASSIUM 3.8 mmol/L (3.6-5.0); SODIUM 139 mmol/L (132-148); TOTAL PROTEIN 7.6 g/dL (5.8-8.3)
[2016-12-10 10:09] LABS: URINE BILIRUBIN NEGATIVE (NEGATIVE); URINE BLOOD NEGATIVE (NEGATIVE); URINE GLUCOSE (UA) NEGATIVE (NEGATIVE); URINE KETONE NEGATIVE (NEGATIVE); URINE LEUKOCYTE ESTERASE NEGATIVE Leu/uL (NEGATIVE); URINE PROTEIN NEGATIVE mg/dL (<30 mg/dL)
[2016-12-10 10:10] LABS: URINE APPEARANCE CLEAR (CLEAR); URINE COLOR YELLOW (YELLOW)
--- NOTE | 2016-12-10 12:01 | CP.PCM.PN ---
<RameshmandieGalilea - Last Filed: 12/10/16 11:57> Subjective - Date & Time of Evaluation Date of Evaluation: 12/10/16 Time of Evaluation: 11:57 - Subjective Subjective: HOSPITALISTS PROGRESS NOTE Pt is seen and examined at bedside. No acute events overnight. Patient states that her throat pain has improved. Patient is tolerating diet. Patient denies having any CP, SOB, abd pain, N/V/D/C. Objective - Vital Signs/Intake and Output Vital Signs (last 24 hours): Temp Pulse Resp BP Pulse Ox 98.3 F 76 19 131/80 99 12/10/16 07:54 12/10/16 07:54 12/10/16 07:54 12/10/16 09:30 12/10/16 07:54 Intake and Output: 12/10/16 12/10/16 06:59 18:59 Intake Total 300 2400 Balance 300 2400 - Medications Medications: Current Medications Acetaminophen (Tylenol 325mg Tab) 650 mg PO Q6H PRN PRN Reason: Fever >100.4 F Last Admin: 12/10/16 00:26 Dose: 650 mg Famotidine (Pepcid) 20 mg IVP DAILY [facility] Last Admin: 12/10/16 09:26 Dose: 20 mg Sodium Chloride (Sodium Chloride 0.9%) 1,000 mls @ 100 mls/hr IV .Q10H ANTIONE Last Admin: 12/10/16 05:18 Dose: 100 mls/hr Aztreonam (Azactam 1 Gm) 100 mls @ 100 mls/hr IVPB Q8 ANTIONE PRN Reason: Protocol Last Admin: 12/10/16 05:18 Dose: 100 mls/hr Ondansetron HCl (Zofran Inj) 4 mg IVP Q4H PRN PRN Reason: Nausea/Vomiting Last Admin: 12/10/16 08:30 Dose: 4 mg - Labs Labs: 12/10/16 07:16 12/10/16 07:16 PT 10.8 Seconds (9.9-11.8) 12/07/16 12:06 INR 1.00 (0.93-1.08) 12/07/16 12:06 APTT 25.7 Seconds (23.7-30.8) 12/07/16 12:06 - Constitutional Appears: Non-toxic, No Acute Distress - Eye Exam Eye Exam: EOMI - ENT Exam ENT Exam: Mucous Membranes Moist - Respiratory Exam Respiratory Exam: Clear to Ausculation Bilateral, NORMAL BREATHING PATTERN. absent: Rales, Rhonchi, Wheezes - Cardiovascular Exam Cardiovascular Exam: REGULAR RHYTHM, +S1, +S2. absent: Gallop, Rubs, Murmur - GI/Abdominal Exam GI & Abdominal Exam: Soft, Normal Bowel Sounds. absent: Distended, Firm, Guarding, Rigid, Tenderness - Extremities Exam Extremities Exam: absent: Pedal Edema, Tenderness - Neurological Exam Neurological Exam: Alert, Awake, Oriented x3 - Psychiatric Exam Psychiatric exam: Normal Affect, Normal Mood - Skin Skin Exam: Dry, Intact, Normal Color, Warm Assessment and Plan - Assessment and Plan (Free Text) Assessment: 31 year old female who is 6 weeks presents with sharp LLQ abdominal pain and fevers. Gastritis vs Entertitis vs PID Plan: Enteritis nontoxic, normal WBC count afebrile Blood and urine cultures are negative. Will send repeat urine culture HIV - non reactive Influenza - negative Aztreonam 1gm IV q8 IV fluids 100ml/hr Zofran 4mg q4 prn Pepcid 20mg daily Tylenol 650mg q6 prn for pain/fever ID consult - Dr. Triplett -appreciate recs -cont aztrenam. Recommend 5-7 days of Abx treatment. Surgery consult - Dr. Alston -appreciate recs -no acute surgical intervention at this time PID UA positive for ketones Gonorrhea and chlamydia negative Transvaginal US - please see full report -Single Live intrauterine preg. 6wks 4days HR 140bpm -Ovaries - No masses, normal flow -Cervix - Long and closed. no cervical abnormality seen OB consult - Dr. Garcia -appreciate recs -findings not consistent with PID PPX SCD's for DVT ppx Case discussed with attending, Dr. Iyer <Giselle Iyer - Last Filed: 12/10/16 14:46> Objective - Vital Signs/Intake and Output Vital Signs (last 24 hours): Temp Pulse Resp BP Pulse Ox 98.3 F 76 19 131/80 99 12/10/16 07:54 12/10/16 07:54 12/10/16 07:54 12/10/16 09:30 12/10/16 07:54 Intake and Output: 12/10/16 12/10/16 06:59 18:59 Intake Total 300 2880 Balance 300 2880 - Medications Medications: Current Medications Acetaminophen (Tylenol 325mg Tab) 650 mg PO Q6H PRN PRN Reason: Fever >100.4 F Last Admin: 12/10/16 00:26 Dose: 650 mg Famotidine (Pepcid) 20 mg IVP DAILY [facility] Last Admin: 12/10/16 09:26 Dose: 20 mg Sodium Chloride (Sodium Chloride 0.9%) 1,000 mls @ 100 mls/hr IV .Q10H [facility] Last Admin: 12/10/16 12:35 Dose: 100 mls/hr Aztreonam (Azactam 1 Gm) 100 mls @ 100 mls/hr IVPB Q8 ANTIONE PRN Reason: Protocol Last Admin: 12/10/16 13:32 Dose: 100 mls/hr Ondansetron HCl (Zofran Inj) 4 mg IVP Q4H PRN PRN Reason: Nausea/Vomiting Last Admin: 12/10/16 14:32 Dose: 4 mg - Labs Labs: 12/10/16 07:16 12/10/16 07:16 PT 10.8 Seconds (9.9-11.8) 12/07/16 12:06 INR 1.00 (0.93-1.08) 12/07/16 12:06 APTT 25.7 Seconds (23.7-30.8) 12/07/16 12:06 Attending/Attestation - Attestation I have personally seen and examined this patient.: Yes I have fully participated in the care of the patient.: Yes I have reviewed all pertinent clinical information, including history, physical exam and plan: Yes Notes (Text): 12/10/16 14:45 attending note; patient seen and examined With the resident. patient is a 31-year-old female admitted with diffuse abdominal pain. currently abdominal pain is resolved. afebrile and nontoxic. Complaining of nausea this morning. no vomiting. continue Zofran. continue IV fluids for hydration. leukocytosis; Resolved. HIV, chlamydia, gonorrhea is negative. Influenza is negative. blood culture is negative. Urine culture showed mixed organism. Surgery evaluation with Dr. Moreno appreciated. ID evaluation DR. GO apprecited. Patient is allergic to penicillin. continue IV Azactam to complete 5 to 7 days. [employer] evaluation with Dr. Garcia appreciated. upon discharge the patient will follow up with PMD DR. Fowler.
[2016-12-10 16:10] VITALS: RESP 20
--- NOTE | 2016-12-10 17:48 | CP.PCM.PN ---
Subjective - Date & Time of Evaluation Date of Evaluation: 12/10/16 Time of Evaluation: 15:45 - Subjective Subjective: Infectious Disease Follow Up: December 10, 2016 31 yo female who is 6 weeks based on ultrasound. She presented with sudden outset of sharp LLQ abdominal pain. Low grade fevers up to 100.6 F in hospital so far with moderate leukocytosis. The patient with history of preeclampsia during her second . No vaginal bleeding. She has had vomiting and morning sickness. She has not been able to keep down liquids even water at this time. She hasn't had a bowel movement in 3 days. She only realized that she was about 1 week ago. She has a boyfriend and is in a monogamous relationship. Patient had fevers up to 102.6 F but afebrile the past 48 hours. The patient stating that she wants to go home. The patient antibiotic options are very limited due to her allergies and her . The patient is on Aztreonam currently. Assumed UTI but the urine cultures are showing multiple organism growth. Objective - Vital Signs/Intake and Output Vital Signs (last 24 hours): Temp Pulse Resp BP Pulse Ox 97.8 F 90 20 116/61 100 12/10/16 16:09 12/10/16 16:09 12/10/16 16:09 12/10/16 16:09 12/10/16 16:09 Intake and Output: 12/10/16 12/10/16 06:59 18:59 Intake Total 300 2880 Balance 300 2880 - Medications Medications: Current Medications Acetaminophen (Tylenol 325mg Tab) 650 mg PO Q6H PRN PRN Reason: Fever >100.4 F Last Admin: 12/10/16 00:26 Dose: 650 mg Famotidine (Pepcid) 20 mg IVP DAILY [facility] Last Admin: 12/10/16 09:26 Dose: 20 mg Sodium Chloride (Sodium Chloride 0.9%) 1,000 mls @ 100 mls/hr IV .Q10H [facility] Last Admin: 12/10/16 12:35 Dose: 100 mls/hr Aztreonam (Azactam 1 Gm) 100 mls @ 100 mls/hr IVPB Q8 ANTIONE PRN Reason: Protocol Last Admin: 12/10/16 13:32 Dose: 100 mls/hr Ondansetron HCl (Zofran Inj) 4 mg IVP Q4H PRN PRN Reason: Nausea/Vomiting Last Admin: 12/10/16 14:32 Dose: 4 mg - Labs Labs: 12/10/16 07:16 12/10/16 07:16 PT 10.8 Seconds (9.9-11.8) 12/07/16 12:06 INR 1.00 (0.93-1.08) 12/07/16 12:06 APTT 25.7 Seconds (23.7-30.8) 12/07/16 12:06 - Constitutional Appears: Non-toxic, No Acute Distress, Chronically Ill - Eye Exam Eye Exam: EOMI, PERRL Pupil Exam: NORMAL ACCOMODATION, PERRL - ENT Exam ENT Exam: Mucous Membranes Moist, Normal External Ear Exam, TM's Normal Bilaterally - Neck Exam Neck Exam: Full ROM, Normal Inspection - Respiratory Exam Respiratory Exam: Clear to Ausculation Bilateral, NORMAL BREATHING PATTERN. absent: Rales, Rhonchi, Wheezes - Cardiovascular Exam Cardiovascular Exam: REGULAR RHYTHM, RRR, +S1, +S2 - GI/Abdominal Exam GI & Abdominal Exam: Soft, Normal Bowel Sounds. absent: Distended, Tenderness - Extremities Exam Extremities Exam: Full ROM, Normal Inspection - Neurological Exam Neurological Exam: Alert, Awake, CN II-XII Intact, Oriented x3 - Psychiatric Exam Psychiatric exam: Normal Affect, Normal Mood - Skin Skin Exam: Intact, Normal Color Assessment and Plan - Assessment and Plan (Free Text) Assessment: 31 yo female who is 6 weeks with sudden onset of LLQ pain. Dehydration. Unable to obtain CT scan of the abdomen due to current status. The patient also has an allergy status to Penicillin. Patient with poor appetite and nausea and vomiting symptoms. Ultrasound only verified the . Continue on Aztreonam for antibiotic coverage. Antibiotic options are limited based on PCN allergy and current status. Supportive care. Continue on Aztreonam for now. Last fevers over 24 hours ago up to 102.6 F. Cultures pending... blood cultures negative at 48 hours. Urine cultures with polymicrobial growth. Afebrile the past 48 hours. Recheck urine culture and analysis. Would try to give 5-7 days of IV antibiotics before discharge as the patient's antibiotic options are extremely limited. Thank you for allowing me to participate in the care of the patient, we will follow with you.
[2016-12-11] MEDS: Sodium Chloride 0.9% 1,000 ML IV SCH (05:02)
[2016-12-11] MEDS: Aztreonam 1 Gm in NS 100mL 100 ML IVPB SCH ×2 (05:02→15:10)
[2016-12-11 07:35] VITALS: BP 94/61; PULSE 76; TEMP 99; O2SAT 98
[2016-12-11 07:36] LABS: MEAN CELL VOLUME 84.3 fL (80.0-105.0); MEAN CORPUSCULAR HEMOGLOBIN 30.1 pg (25.0-35.0); MEAN CORPUSCULAR HGB CONC 35.7 g/dl (31.0-37.0); MEAN PLATELET VOLUME 9.4 fl (7.0-11.0); RED CELL DISTRIBUTION WIDTH 12.9 % (11.5-14.5); WHITE BLOOD COUNT 9.9 10^3/ul (4.5-11.0)
[2016-12-11 07:48] LABS: ALB/GLOB RATIO 0.9 (1.1-1.8); ALKALINE PHOSPHATASE 67 U/L (38-133); ALT/SGPT 29 U/L (7-56); AST/SGOT 25 U/L (15-39); BILIRUBIN,TOTAL 0.5 mg/dL (0.2-1.3); BLOOD UREA NITROGEN 9 mg/dL (7-21); CARBON DIOXIDE 25 mmol/L (21-33); CHLORIDE 104 mmol/L (98-107); GFR AFRICAN-AMERICAN > 60; GLUCOSE,RANDOM 86 mg/dL (70-110); POTASSIUM 4.2 mmol/L (3.6-5.0); SODIUM 137 mmol/L (132-148); TOTAL PROTEIN 8.1 g/dL (5.8-8.3)
--- NOTE | 2016-12-11 17:00 | CP.PCM.DIS ---
<AlonzoDeshaunpia - Last Filed: 12/11/16 16:53> Provider - Provider Date of Admission: 12/08/16 10:12 Attending physician: Love Chavez MD Primary care physician: Moriah Fowler MD Consults: ID: Go NURSE TECHNICIAN: Radha Surgery: [place] Time Spent in preparation of Discharge (in minutes): 45 Hospital Course - Lab Results Lab Results: Most Recent Lab Values WBC 9.9 10^3/ul (4.5-11.0) 12/11/16 07:00 RBC 4.15 10^6/uL (3.5-6.1) 12/11/16 07:00 Hgb 12.5 gm/dL (12.0-16.0) 12/11/16 07:00 Hct 35.0 % (36.0-48.0) L 12/11/16 07:00 MCV 84.3 fL (80.0-105.0) 12/11/16 07:00 MCH 30.1 pg (25.0-35.0) 12/11/16 07:00 MCHC 35.7 g/dl (31.0-37.0) 12/11/16 07:00 RDW 12.9 % (11.5-14.5) 12/11/16 07:00 Plt Count 370 10^3/uL (120.0-450.0) 12/11/16 07:00 MPV 9.4 fl (7.0-11.0) 12/11/16 07:00 Gran % 78.1 % (50.0-68.0) H 12/09/16 07:57 Lymph % (Auto) 14.1 % (22.0-35.0) L 12/09/16 07:57 [place] % (Auto) 6.8 % (1.0-6.0) H 12/09/16 07:57 Eos % (Auto) 0.9 % (1.5-5.0) L 12/09/16 07:57 Baso % (Auto) 0.1 % (0.0-3.0) 12/09/16 07:57 Gran # 12.56 (1.4-6.5) H 12/09/16 07:57 Lymph # 2.3 (1.2-3.4) 12/09/16 07:57 [place] # 1.1 (0.1-0.6) H 12/09/16 07:57 Eos # 0.1 (0.0-0.7) 12/09/16 07:57 Baso # 0.02 K/mm3 (0.0-2.0) 12/09/16 07:57 PT 10.8 Seconds (9.9-11.8) 12/07/16 12:06 INR 1.00 (0.93-1.08) 12/07/16 12:06 APTT 25.7 Seconds (23.7-30.8) 12/07/16 12:06 pO2 33 mm/Hg (30-55) 12/07/16 12:06 VBG pH 7.37 (7.32-7.43) 12/07/16 12:06 VBG pCO2 47.0 (40-60) 12/07/16 12:06 VBG HCO3 27.2 mmol/l (21-28) 12/07/16 12:06 VBG Total CO2 28.6 mmol.L (22-28) H 12/07/16 12:06 VBG O2 Sat (Calc) 64.2 % (40-65) 12/07/16 12:06 VBG Base Excess 1.3 mmol/L (0.0-2.0) 12/07/16 12:06 VBG Potassium 4.1 mmol/L (3.6-5.2) 12/07/16 12:06 Sodium 133.0 mmol/L (132-148) 12/07/16 12:06 Chloride 99.0 mmol/L (98-107) 12/07/16 12:06 Glucose 102 mg/dl (65-105) 12/07/16 12:06 Lactate 1.0 mmol/L (0.7-2.1) 12/07/16 12:06 FiO2 21.0 % 12/07/16 12:06 Sodium 137 mmol/L (132-148) 12/11/16 07:00 Potassium 4.2 mmol/L (3.6-5.0) 12/11/16 07:00 Chloride 104 mmol/L (98-107) 12/11/16 07:00 Carbon Dioxide 25 mmol/L (21-33) 12/11/16 07:00 Anion Gap 12 (10-20) 12/11/16 07:00 BUN 9 mg/dL (7-21) 12/11/16 07:00 Creatinine 0.6 mg/dL (0.5-1.4) 12/11/16 07:00 Est GFR ( Amer) > 60 12/11/16 07:00 Est GFR (Non-Af Amer) > 60 12/11/16 07:00 POC Glucose (mg/dL) 110 mg/dL (65-110) 12/07/16 12:11 Random Glucose 86 mg/dL (70-110) 12/11/16 07:00 Calcium 9.0 mg/dL (8.4-10.5) 12/11/16 07:00 Total Bilirubin 0.5 mg/dL (0.2-1.3) 12/11/16 07:00 AST 25 U/L (15-39) 12/11/16 07:00 ALT 29 U/L (7-56) 12/11/16 07:00 Alkaline Phosphatase 67 U/L (38-133) 12/11/16 07:00 Total Protein 8.1 g/dL (5.8-8.3) 12/11/16 07:00 Albumin 3.8 g/dL (3.0-4.8) 12/11/16 07:00 Globulin 4.3 gm/dL 12/11/16 07:00 Albumin/Globulin Ratio 0.9 (1.1-1.8) L 12/11/16 07:00 Beta HCG, Quant 41389.00 mIU/mL (0-6.15) H 12/07/16 12:06 Venous Blood Potassium 4.1 mmol/L (3.6-5.2) 12/07/16 12:06 Urine Color Yellow (YELLOW) 12/10/16 10:03 Urine Appearance Clear (CLEAR) 12/10/16 10:03 Urine pH 7.0 (4.7-8.0) 12/10/16 10:03 Ur Specific [place] 1.020 (1.005-1.035) 12/10/16 10:03 Urine Protein Negative mg/dL (<30 mg/dL) 12/10/16 10:03 Urine Glucose (UA) Negative mg/dL (NEGATIVE) 12/10/16 10:03 Urine Ketones Negative mg/dL (NEGATIVE) 12/10/16 10:03 Urine Blood Negative (NEGATIVE) 12/10/16 10:03 Urine Nitrate Negative (NEGATIVE) 12/10/16 10:03 Urine Bilirubin Negative (NEGATIVE) 12/10/16 10:03 Urine Urobilinogen 1.0 E.U./dL (<1 E.U./dL) H 12/10/16 10:03 Ur Leukocyte Esterase Negative Shanna/uL (NEGATIVE) 12/10/16 10:03 Urine HCG, Qual Positive (NEGATIVE) 12/07/16 14:00 Urine Opiates Screen Negative (NEGATIVE) 12/07/16 14:40 Urine Methadone Screen Negative (NEGATIVE) 12/07/16 14:40 Ur Barbiturates Screen Negative (NEGATIVE) 12/07/16 14:40 Ur Phencyclidine Scrn Negative (NEGATIVE) 12/07/16 14:40 Ur Amphetamines Screen Negative (NEGATIVE) 12/07/16 14:40 U Benzodiazepines Scrn Negative (NEGATIVE) 12/07/16 14:40 U Oth Cocaine Metabols Negative (NEGATIVE) 12/07/16 14:40 U Cannabinoids Screen Negative (NEGATIVE) 12/07/16 14:40 C.trachomatis RNA (TMA) Not detected (Not Detected) 12/07/16 14:00 HIV 1&2 Ag/Ab, 4th Gen Nonreactive (Nonreactive) 12/08/16 07:00 Influenza Typ A,B (EIA) Negative for flu a/b (NEGATIVE) 12/07/16 12:55 N.gonorrhoeae RNA (TMA) Not detected (Not Detected) 12/07/16 14:00 Blood Type A POSITIVE 12/07/16 12:30 Blood Type Confirm A POSITIVE 12/07/16 14:00 Antibody Screen Negative 12/07/16 12:30 BBK History Checked No verified bt 12/07/16 12:30 - Hospital Course Hospital Course: 31 yo 6 wk F presents to ED C/O LLQ abd pain that began suddenly at 5am on 12/07 that radiates to back and is associated with nausea. LMP was in October. 12/07: WBC 15.4, T 100.6, HR 121. U/S neg for ectopic . Found to have IUP at 6 wks gestation age based on US. General surgery was consulted for possible surgical intervention, however no surgical intervention required at this time and to continue with medical management. 12/08: WBC 16.5, T 102.1, HR 85. +wheezing. Pt denies pain, cough. Pt was started on antibiotics as per ID, Dr. Triplett. Pt was started on aztreonam. 12/09: per ID, pt will require 5-7 days of IV Aztreonam due to pts status as and pcn allergy. Urine culters demonstrated polymicrobial growth. Blood cx were negative Pt was seen and examined at bedside. Pt has been afebrile for >24 hr. No acute complaints at this time. Pt states that her abdominal pain has greatly improved and now only has mild complaints of abdominal pressure in the epigastric area. She states that pepcid has helped ease her discomfort to a degree. Pt also states that she is still naseous from time to time however the medical management has been providing relief. Upon discharge pt is to be followed up by PMD Dr. Moriah Fowler. Pt is to see NURSE TECHNICIAN at [facility] for which she has a scheduled appointment for the 12/12/16. Discharge Exam - Head Exam Head Exam: ATRAUMATIC, NORMOCEPHALIC - Eye Exam Eye Exam: EOMI, Normal appearance, PERRL Pupil Exam: NORMAL ACCOMODATION, PERRL - ENT Exam ENT Exam: Mucous Membranes Moist - Respiratory Exam Respiratory Exam: Clear to PA & Lateral, NORMAL BREATHING PATTERN, UNREMARKABLE - Cardiovascular Exam Cardiovascular Exam: REGULAR RHYTHM, +S1, +S2 - GI/Abdominal Exam GI & Abdominal Exam: Normal Bowel Sounds, Soft. absent: Tenderness - Extremities Exam Extremities exam: normal inspection - Neurological Exam Neurological exam: Alert, CN II-XII Intact, Normal Gait, Oriented x3, Reflexes Normal - Psychiatric Exam Psychiatric exam: Normal Affect, Normal Mood - Skin Skin Exam: Dry, Intact, Normal Color, Warm Discharge Plan - Discharge Medications Prescriptions: Doxylamine/Pyridoxine HCl (B6) [Emmanuel Fung 10-10 mg Tablet] 1 each PO Q6 PRN # 28 tablet.dr ALEJANDRA Reason: Nausea/Vomiting - Follow Up Plan Condition: SERIOUS Disposition: HOME/ ROUTINE Instructions: Acute Abdominal Pain (DC), Acute Abdominal Pain (GEN) Additional Instructions: Follow up with your medical doctor Dr. Fowler within 1 week of discharge. If you experience any worsening of pain, chest pain, bloody discharge contact your primary medical doctor or go to the nearest emergency room. Referrals: Moriah Fowler MD [Primary Care Provider] - <Love Chavez - Last Filed: 12/12/16 14:21> Provider - Provider Date of Admission: 12/08/16 10:12 Attending physician: Love Chavez MD Primary care physician: Moriah Fowler MD Hospital Course - Lab Results Lab Results: Micro Results 12/10/16 09:50 Urine Urine Culture - Final Enterococcus Faecalis Most Recent Lab Values WBC 9.9 10^3/ul (4.5-11.0) 12/11/16 07:00 RBC 4.15 10^6/uL (3.5-6.1) 12/11/16 07:00 Hgb 12.5 gm/dL (12.0-16.0) 12/11/16 07:00 Hct 35.0 % (36.0-48.0) L 12/11/16 07:00 MCV 84.3 fL (80.0-105.0) 12/11/16 07:00 MCH 30.1 pg (25.0-35.0) 12/11/16 07:00 MCHC 35.7 g/dl (31.0-37.0) 12/11/16 07:00 RDW 12.9 % (11.5-14.5) 12/11/16 07:00 Plt Count 370 10^3/uL (120.0-450.0) 12/11/16 07:00 MPV 9.4 fl (7.0-11.0) 12/11/16 07:00 Gran % 78.1 % (50.0-68.0) H 12/09/16 07:57 Lymph % (Auto) 14.1 % (22.0-35.0) L 12/09/16 07:57 [place] % (Auto) 6.8 % (1.0-6.0) H 12/09/16 07:57 Eos % (Auto) 0.9 % (1.5-5.0) L 12/09/16 07:57 Baso % (Auto) 0.1 % (0.0-3.0) 12/09/16 07:57 Gran # 12.56 (1.4-6.5) H 12/09/16 07:57 Lymph # 2.3 (1.2-3.4) 12/09/16 07:57 [place] # 1.1 (0.1-0.6) H 12/09/16 07:57 Eos # 0.1 (0.0-0.7) 12/09/16 07:57 Baso # 0.02 K/mm3 (0.0-2.0) 12/09/16 07:57 PT 10.8 Seconds (9.9-11.8) 12/07/16 12:06 INR 1.00 (0.93-1.08) 12/07/16 12:06 APTT 25.7 Seconds (23.7-30.8) 12/07/16 12:06 pO2 33 mm/Hg (30-55) 12/07/16 12:06 VBG pH 7.37 (7.32-7.43) 12/07/16 12:06 VBG pCO2 47.0 (40-60) 12/07/16 12:06 VBG HCO3 27.2 mmol/l (21-28) 12/07/16 12:06 VBG Total CO2 28.6 mmol.L (22-28) H 12/07/16 12:06 VBG O2 Sat (Calc) 64.2 % (40-65) 12/07/16 12:06 VBG Base Excess 1.3 mmol/L (0.0-2.0) 12/07/16 12:06 VBG Potassium 4.1 mmol/L (3.6-5.2) 12/07/16 12:06 Sodium 133.0 mmol/L (132-148) 12/07/16 12:06 Chloride 99.0 mmol/L (98-107) 12/07/16 12:06 Glucose 102 mg/dl (65-105) 12/07/16 12:06 Lactate 1.0 mmol/L (0.7-2.1) 12/07/16 12:06 FiO2 21.0 % 12/07/16 12:06 Sodium 137 mmol/L (132-148) 12/11/16 07:00 Potassium 4.2 mmol/L (3.6-5.0) 12/11/16 07:00 Chloride 104 mmol/L (98-107) 12/11/16 07:00 Carbon Dioxide 25 mmol/L (21-33) 12/11/16 07:00 Anion Gap 12 (10-20) 12/11/16 07:00 BUN 9 mg/dL (7-21) 12/11/16 07:00 Creatinine 0.6 mg/dL (0.5-1.4) 12/11/16 07:00 Est GFR ( Amer) > 60 12/11/16 07:00 Est GFR (Non-Af Amer) > 60 12/11/16 07:00 POC Glucose (mg/dL) 110 mg/dL (65-110) 12/07/16 12:11 Random Glucose 86 mg/dL (70-110) 12/11/16 07:00 Calcium 9.0 mg/dL (8.4-10.5) 12/11/16 07:00 Total Bilirubin 0.5 mg/dL (0.2-1.3) 12/11/16 07:00 AST 25 U/L (15-39) 12/11/16 07:00 ALT 29 U/L (7-56) 12/11/16 07:00 Alkaline Phosphatase 67 U/L (38-133) 12/11/16 07:00 Total Protein 8.1 g/dL (5.8-8.3) 12/11/16 07:00 Albumin 3.8 g/dL (3.0-4.8) 12/11/16 07:00 Globulin 4.3 gm/dL 12/11/16 07:00 Albumin/Globulin Ratio 0.9 (1.1-1.8) L 12/11/16 07:00 Beta HCG, Quant 82110.00 mIU/mL (0-6.15) H 12/07/16 12:06 Venous Blood Potassium 4.1 mmol/L (3.6-5.2) 12/07/16 12:06 Urine Color Yellow (YELLOW) 12/10/16 10:03 Urine Appearance Clear (CLEAR) 12/10/16 10:03 Urine pH 7.0 (4.7-8.0) 12/10/16 10:03 Ur Specific [place] 1.020 (1.005-1.035) 12/10/16 10:03 Urine Protein Negative mg/dL (<30 mg/dL) 12/10/16 10:03 Urine Glucose (UA) Negative mg/dL (NEGATIVE) 12/10/16 10:03 Urine Ketones Negative mg/dL (NEGATIVE) 12/10/16 10:03 Urine Blood Negative (NEGATIVE) 12/10/16 10:03 Urine Nitrate Negative (NEGATIVE) 12/10/16 10:03 Urine Bilirubin Negative (NEGATIVE) 12/10/16 10:03 Urine Urobilinogen 1.0 E.U./dL (<1 E.U./dL) H 12/10/16 10:03 Ur Leukocyte Esterase Negative Shanna/uL (NEGATIVE) 12/10/16 10:03 Urine HCG, Qual Positive (NEGATIVE) 12/07/16 14:00 Urine Opiates Screen Negative (NEGATIVE) 12/07/16 14:40 Urine Methadone Screen Negative (NEGATIVE) 12/07/16 14:40 Ur Barbiturates Screen Negative (NEGATIVE) 12/07/16 14:40 Ur Phencyclidine Scrn Negative (NEGATIVE) 12/07/16 14:40 Ur Amphetamines Screen Negative (NEGATIVE) 12/07/16 14:40 U Benzodiazepines Scrn Negative (NEGATIVE) 12/07/16 14:40 U Oth Cocaine Metabols Negative (NEGATIVE) 12/07/16 14:40 U Cannabinoids Screen Negative (NEGATIVE) 12/07/16 14:40 C.trachomatis RNA (TMA) Not detected (Not Detected) 12/07/16 14:00 HIV 1&2 Ag/Ab, 4th Gen Nonreactive (Nonreactive) 12/08/16 07:00 Influenza Typ A,B (EIA) Negative for flu a/b (NEGATIVE) 12/07/16 12:55 N.gonorrhoeae RNA (TMA) Not detected (Not Detected) 12/07/16 14:00 Blood Type A POSITIVE 12/07/16 12:30 Blood Type Confirm A POSITIVE 12/07/16 14:00 Antibody Screen Negative 12/07/16 12:30 BBK History Checked No verified bt 12/07/16 12:30 Attending/Attestation - Attestation I have personally seen and examined this patient.: Yes I have fully participated in the care of the patient.: Yes I have reviewed all pertinent clinical information, including history, physical exam and plan: Yes Notes (Text): I have seen and examined the patient at bedside. This is 31 year old female who got admitted with diffuse left lower quadrant abdominal pain with vomiting and fever. CT could not be done due to . US was normal and it was negative for ectopic . General surgery and OB consult appreciated. There were no signs of PID. As she was allergic to PCN, azactam was given for 5 days. Blood cultures were negative. Urine culture showed polymicrobial growth. HIV, chlamydia, gonorrhea is negative. Influenza is negative. Patient feels well and denies any complaints. Upon discharge pt is to be followed up by PMD Dr. Moriah Fowler. Pt is to see NURSE TECHNICIAN at [facility] for which she has a scheduled appointment for the 12/12/16. Dr Love Chavez
--- NOTE | 2016-12-11 17:42 | CP.PCM.PN ---
Subjective - Date & Time of Evaluation Date of Evaluation: 12/11/16 Time of Evaluation: 12:00 - Subjective Subjective: Infectious Disease Follow Up: December 11, 2016 31 yo female who is 6 weeks based on ultrasound. She presented with sudden outset of sharp LLQ abdominal pain. Low grade fevers up to 100.6 F in hospital so far with moderate leukocytosis. The patient with history of preeclampsia during her second . No vaginal bleeding. She has had vomiting and morning sickness. She has not been able to keep down liquids even water at this time. She hasn't had a bowel movement in 3 days. She only realized that she was about 1 week ago. She has a boyfriend and is in a monogamous relationship. Patient had fevers up to 102.6 F but afebrile the past 48 hours. The patient stating that she wants to go home. The patient antibiotic options are very limited due to her allergies and her . The patient is on Aztreonam currently. Assumed UTI but the urine cultures are showing multiple organism growth. Completed antibiotic course of 5 days with Aztreonam. Limited antibiotic choices due to and questionable PCN allergies. Objective - Vital Signs/Intake and Output Vital Signs (last 24 hours): Temp Pulse Resp BP Pulse Ox 99 F 76 20 94/61 L 98 12/11/16 07:34 12/11/16 07:34 12/11/16 07:34 12/11/16 07:34 12/11/16 07:34 Intake and Output: 12/11/16 12/11/16 06:59 18:59 Intake Total 2520 240 Balance 2520 240 - Labs Labs: 12/11/16 07:00 12/11/16 07:00 PT 10.8 Seconds (9.9-11.8) 12/07/16 12:06 INR 1.00 (0.93-1.08) 12/07/16 12:06 APTT 25.7 Seconds (23.7-30.8) 12/07/16 12:06 - Constitutional Appears: Non-toxic, No Acute Distress, Chronically Ill - Head Exam Head Exam: ATRAUMATIC, NORMOCEPHALIC - Eye Exam Eye Exam: EOMI, PERRL Pupil Exam: NORMAL ACCOMODATION, PERRL - ENT Exam ENT Exam: Mucous Membranes Moist, Normal External Ear Exam, TM's Normal Bilaterally - Neck Exam Neck Exam: Full ROM, Normal Inspection - Respiratory Exam Respiratory Exam: Clear to Ausculation Bilateral, NORMAL BREATHING PATTERN. absent: Rales, Rhonchi, Wheezes - Cardiovascular Exam Cardiovascular Exam: REGULAR RHYTHM, RRR, +S1, +S2 - GI/Abdominal Exam GI & Abdominal Exam: Soft, Normal Bowel Sounds. absent: Distended, Tenderness - Extremities Exam Extremities Exam: Full ROM, Normal Inspection - Neurological Exam Neurological Exam: Alert, Awake, CN II-XII Intact, Oriented x3 - Psychiatric Exam Psychiatric exam: Normal Affect, Normal Mood - Skin Skin Exam: Intact, Normal Color Assessment and Plan - Assessment and Plan (Free Text) Assessment: 31 yo female who is 6 weeks with sudden onset of LLQ pain. Dehydration. Unable to obtain CT scan of the abdomen due to current status. The patient also has an allergy status to Penicillin. Patient with poor appetite and nausea and vomiting symptoms. Ultrasound only verified the . Continue on Aztreonam for antibiotic coverage. Antibiotic options are limited based on PCN allergy and current status. Supportive care. Continue on Aztreonam for now. Last fevers over 24 hours ago up to 102.6 F. Cultures pending... blood cultures negative at 48 hours. Urine cultures with polymicrobial growth. Afebrile the past 48 hours. Recheck urine culture and analysis. Would try to give 5-7 days of IV antibiotics before discharge as the patient's antibiotic options are extremely limited. At 5 days today. Thank you for allowing me to participate in the care of the patient, we will follow with you.
== END 2016-12-11 15:34 | disposition home or self-care (01) | DRG 886 ==
LOC: ED 11:53 → ERH 13:38 → 3RNO 15:18 → OBSVTOIN 12-08 10:12
PROVIDERS: ADMIT Internal Medicine; ATTEND Hospitalist
DX: O21.1 Hyperemesis gravidarum with metabolic disturbance (principal); E86.0 Dehydration; O23.41 Unspecified infection of urinary tract in pregnancy, first trimester; O99.611 Diseases of the digestive system complicating pregnancy, first trimester; K52.9 Noninfective gastroenteritis and colitis, unspecified; K29.70 Gastritis, unspecified, without bleeding; K21.9 Gastro-esophageal reflux disease without esophagitis; R10.32 Left lower quadrant pain; Z3A.01 Less than 8 weeks gestation of pregnancy; Z88.0 Allergy status to penicillin; Z87.59 Personal history of other complications of pregnancy, childbirth and the puerperium

== ENCOUNTER 2017-01-09 22:05 | Emergency (ER) | payer MEDICAID ==
[2017-01-09 22:13] VITALS: BMI 34.5
[2017-01-09 22:50] VITALS: RESP 16; TEMP 98.3
[2017-01-09] MEDS ORDERED: Sodium Chloride 0.9% 1,000 ML IV STA (22:50)
[2017-01-09 23:19] LABS: BASO # 0.01 K/mm3 (0.0-2.0); BASO % 0.1 % (0.0-3.0); EOS # 0.2 (0.0-0.7); EOS % 1.7 % (1.5-5.0); GRAN # 7.53 (1.4-6.5); GRAN % 65.1 % (50.0-68.0); HEMOGLOBIN 13.3 gm/dL (12.0-16.0); LYMPH # 3.1 (1.2-3.4); MEAN CELL VOLUME 86.7 fL (80.0-105.0); MEAN CORPUSCULAR HEMOGLOBIN 31.1 pg (25.0-35.0); MEAN CORPUSCULAR HGB CONC 35.9 g/dl (31.0-37.0); MEAN PLATELET VOLUME 9.6 fl (7.0-11.0); MONO # 0.7 (0.1-0.6); MONO % 6.1 % (1.0-6.0); PLATELET COUNT 346 10^3/uL (120.0-450.0); RBC 4.27 10^6/uL (3.5-6.1); WHITE BLOOD COUNT 11.6 10^3/ul (4.5-11.0)
[2017-01-09 23:24] LABS: URINE BILIRUBIN NEGATIVE (NEGATIVE); URINE BLOOD NEGATIVE (NEGATIVE); URINE GLUCOSE (UA) NEGATIVE (NEGATIVE); URINE LEUKOCYTE ESTERASE NEGATIVE Leu/uL (NEGATIVE); URINE NITRATE NEGATIVE (NEGATIVE); URINE PROTEIN NEGATIVE mg/dL (<30 mg/dL); URINE UROBILINOGEN 0.2 E.U./dL (<1 E.U./dL)
[2017-01-09 23:29] LABS: URINE APPEARANCE CLEAR (CLEAR); URINE COLOR YELLOW (YELLOW)
--- NOTE | 2017-01-09 23:40 | ED PDOC ---
Arrival/HPI - General Chief Complaint: Abdominal Pain Time Seen by Provider: 01/09/17 22:49 Historian: Patient - History of Present Illness Narrative History of Present Illness (Text): 01/09/17 23:37 Patient is 3 months , complains of intermittent crampy lower abdominal pain which started this evening, and has been present for the past 3 hours with no vaginal bleeding. Patient also reports 1 day history of intermittent nonradiating epigastric pain associated with nausea. Otherwise: (-) vomiting, (- ) diarrhea, (-) fever, (-) urinary symptoms, (-) melena, (-) hematochezia, (+) care, (+) prior OB US. Has no history of prior abdominal surgery. OB ? name Past Medical History - Provider Review Nursing Documentation Reviewed: Yes - Infectious Disease Hx of Infectious Diseases: None - Tetanus Immunization Tetanus Immunization: Up to Date - Past Medical History Past Medical History: No Previous - Cardiac Hx Cardiac Disorders: Yes Hx Angina: No Hx Hypertension: Yes - Pulmonary Hx Respiratory Disorders: No - Neurological Hx Neurological Disorder: No - HEENT Hx HEENT Disorder: No - Renal Hx Renal Disorder: No - Endocrine/Metabolic Hx Endocrine Disorders: No - Hematological/Oncological Hx Blood Disorders: No - Integumentary Hx Dermatological Disorder: No - Musculoskeletal/Rheumatological Hx Musculoskeletal Disorders: No - Gastrointestinal Hx Gastrointestinal Disorders: Yes Hx Gastroesophageal Reflux: Yes - Genitourinary/Gynecological Hx Genitourinary Disorders: Yes Other/Comment: Pre-eclampsia, 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 - Psychiatric Hx Psychophysiologic Disorder: No Hx Depression: No Hx Emotional Abuse: No Hx Physical Abuse: No Hx Substance Use: No (none) - Surgical History Hx Section: Yes Hx Cholecystectomy: Yes Hx Tonsillectomy: Yes - Anesthesia Hx Anesthesia: Yes Hx Anesthesia Reactions: No Hx Malignant Hyperthermia: No - Suicidal Assessment Feels Threatened In Home Enviroment: No Family/Social History - Physician Review Nursing Documentation Reviewed: Yes Family/Social History: No Known Family HX Smoking Status: Never Smoked Hx Alcohol Use: No Hx Substance Use: No (none) Allergies/Home Meds Allergies/Adverse Reactions: Allergies Penicillins Allergy (Verified 12/07/16 15:20) RASH Home Medications: Home Meds Medication Instructions Recorded Confirmed Ferrous Sulfate [Feosol] 325 mg PO DAILY 01/09/17 01/09/17 Ondansetron ODT [Zofran ODT] 4 mg PO BID 01/09/17 01/09/17 Multivit/Folic Acid/I 1 tab PO DAILY 01/09/17 01/09/17 [ Plus] Review of Systems - Review of Systems Constitutional: Normal. absent: Fatigue, Weight Change, Fevers Respiratory: Normal. absent: SOB, Cough, Sputum Cardiovascular: Normal. absent: Chest Pain, Palpitations, Edema Gastrointestinal: Normal, Abdominal Pain, Nausea. absent: Stool Changes, Appetite Changes Genitourinary Female: Normal. absent: Dysuria, Frequency, Hematuria, Vaginal Bleeding, Vaginal Discharge Musculoskeletal: Normal. absent: Arthralgias, Back Pain, Neck Pain Skin: Normal. absent: Rash, Pruritis, Skin Lesions Physical Exam - Physical Exam Narrative Physical Exam (Text): 01/09/17 23:40 GENERAL APPEARANCE: Patient is awake, alert, oriented x 3, in no acute distress. SKIN: Warm, dry; (-) cyanosis. EYES: (-) conjunctival pallor, (-) scleral icterus. ENMT: Mucous membranes dry. NECK: (-) tenderness, (-) stiffness, (-) lymphadenopathy. CHEST AND RESPIRATORY: (-) rales, (-) rhonchi, (-) wheezes; breath sounds equal bilaterally. HEART AND CARDIOVASCULAR: (-) irregularity; (-) murmur, (-) gallop. ABDOMEN AND GI: (-) distention. Bowel sounds active; (+) mild lower abdominal tenderness, (-) guarding, (-) rebound, (-) palpable masses, (-) CVA tenderness. (-) Villalobos's sign. EXTREMITIES: (-) deformity, (-) edema, (+) distal pulses. NEURO AND PSYCH: Mental status as above; (-) focal findings. Vital Signs Temp Pulse Resp BP Pulse Ox 01/10/17 01:01 85 16 116/77 98 01/10/17 01:00 90 16 116/77 98 01/09/17 22:49 98.3 F 81 16 115/67 99 Medical Decision Making ED Course and Treatment: 01/09/17 23:41 31 yo F is 3 months , complains of 3 hours h/o lower abdominal pain which started this evening, with no vaginal bleeding. Patient also reports 1 day history of intermittent nonradiating epigastric pain associated with nausea. Based on history and exam to consider acute cholecystitis, cholelithiasis, more likely dyspepsia. To also rule out miscarriage, UTI, possible [place] contractions. Plan: -- Labs -- IV fluids -- Urinalysis -- IV Pepcid and Reglan -- Reassess and disposition -- Transvaginal OB US / US ABD Labs reviewed : wbc 11.6, CMP wnl, beta quant 125,280, UA no evidence of infection. Patient went to ultrasound. Patient returns from ultrasound without any incident. On reevaluation, patient reports significant improvement of pain, denies any nausea, vomiting, vaginal bleeding. On exam, patient is resting comfortably in bed in no acute distress. Abdomen remains soft with no tenderness, no guarding, no rebound, negative Villalobos sign. Ultrasound of the abdomen results reviewed and shows no acute findings, transvaginal OB ultrasound shows single live IUP. Diagnostic results discussed with the patient in great detail. Prescription for Pepcid prescribed, otherwise patient instructed to follow up with her OB doctor in 1-2 days without fail. Advised to take medication as prescribed. Return to the emergency room at any time for any new or worsening symptoms. Patient states he fully agrees with and understands discharge instructions. States that he agrees with the plan and disposition. Verbalized and repeated discharge instructions and plan. I have given the patient opportunity to ask any additional questions. - Lab Interpretations Lab Results: 01/09/17 23:00 01/09/17 23:00 Lab Results 01/09/17 23:00: Beta HCG, Quant [id number] H 01/09/17 23:00: Sodium 135, Potassium 4.0, Chloride 103, Carbon Dioxide 24, Anion Gap 12, BUN 14, Creatinine 0.7, Est GFR ( Amer) > 60, Est GFR (Non- Af Amer) > 60, Random Glucose 83, Calcium 9.6, Total Bilirubin 0.4, AST 30, ALT 32, Alkaline Phosphatase 58, Total Protein 8.5 H, Albumin 4.2, Globulin 4.2, Albumin/Globulin Ratio 1.0 L, Lipase 85 01/09/17 23:00: Urine Color Yellow, Urine Appearance Clear, Urine pH 6.0, Ur Specific [place] >= 1.030, Urine Protein Negative, Urine Glucose (UA) Negative, Urine Ketones Trace H, Urine Blood Negative, Urine Nitrate Negative, Urine Bilirubin Negative, Urine Urobilinogen 0.2, Ur Leukocyte Esterase Negative 01/09/17 23:00: WBC 11.6 H, RBC 4.27, Hgb 13.3, Hct 37.0, MCV 86.7, MCH 31.1, MCHC 35.9, RDW 13.0, Plt Count 346, MPV 9.6, Gran % 65.1, Lymph % (Auto) 27.0, [place] % (Auto) 6.1 H, Eos % (Auto) 1.7, Baso % (Auto) 0.1, Gran # 7.53 H, Lymph # 3.1, Mcleod # 0.7 H, Eos # 0.2, Baso # 0.01 - RAD Interpretation Narrative RAD Interpretations (Text): 01/10/17 00:42 US abd: FINDINGS: Liver: Normal echogenicity. No mass. No intrahepatic bile duct dilatation. Gallbladder: Cholecystectomy. Common bile duct: No dilatation. No stones. Pancreas: Unremarkable as visualized. Kidneys: Normal echogenicity. No hydronephrosis. Spleen: No splenomegaly. Aorta: Unremarkable. No aneurysm. Inferior vena cava: Unremarkable. Free fluid: No significant free fluid. IMPRESSION: 1. No acute findings. 2. Non-acute findings are described above. Dictated and Authenticated by: Joey Vera MD 01/09/2017 11:52 PM Eastern Time ([place] & [place]) US TV : FINDINGS: Gestation: Single live intrauterine gestation. heart rate of 161 beats per minute. [place]-rump length of 4.56 cm, correlating with gestational age of 11 weeks 3 days. Uterus/cervix: No subchorionic hemorrhage. No cervical dilatation or effacement. Nabothian cyst. Ovaries: RIGHT ovary: Not visualized. LEFT ovary: Normal. No adnexal masses. Free fluid: No significant free fluid. IMPRESSION: 1. Single live intrauterine gestation. 2. Incidental/non-acute findings are described above. Dictated and Authenticated by: Joey Vera MD 01/10/2017 12:02 AM Eastern Time (US & [place]) Radiology Orders: 01/09/17 22:50 ABDOMEN COMPLETE [US] Stat 01/09/17 22:51 OB TRANSVAGINAL [US] Routine - Medication Orders Current Medication Orders: Discontinued Medications Sodium Chloride (Sodium Chloride 0.9%) 1,000 mls @ 1,000 mls/hr IV .Q1H STA Stop: 01/09/17 23:49 Last Admin: 01/09/17 23:16 Dose: 1,000 mls/hr Metoclopramide HCl (Reglan) 10 mg IVP STAT STA Stop: 01/09/17 22:51 Last Admin: 01/09/17 23:16 Dose: 10 mg - PA / ENVIRONMENTAL SCIENCE PROFESSOR / Resident Statement MD/DO has reviewed & agrees with the documentation as recorded. Disposition/Present on Arrival - Present on Arrival Any Indicators Present on Arrival: No History of DVT/PE: No History of Uncontrolled Diabetes: No Urinary Catheter: No History of Decub. Ulcer: No History Surgical Site Infection Following: None - Disposition Have Diagnosis and Disposition been Completed?: Yes Diagnosis: Abdominal pain, , Dyspepsia Disposition: HOME/ ROUTINE Disposition Time: 00:15 Patient Plan: Discharge Condition: IMPROVED Discharge Instructions (ExitCare): Chronic Indigestion (ED), [place] Shea Contractions (ED) Print Language: BENGALI Additional Instructions: Thank you for letting us take care of you today. You were treated for abdominal pain likely dyspepsia, . The emergency medical care you received today was directed at your acute symptoms. If you were prescribed any medication, please fill it and take as directed. It may take several days for your symptoms to resolve. Return to the Emergency Department if your symptoms worsen, do not improve, or if you have any other problems. Please contact your doctor in 2 days for re-evaluation and follow up. Bring any paperwork you were given at discharge with you along with any medications you are taking to your follow up visit. Our treatment cannot replace ongoing medical care by a primary care provider (PCP) outside of the emergency department. Thank you for allowing the [facility] team to be part of your care today. Prescriptions: Famotidine [Pepcid] 40 mg PO DAILY #20 tablet Forms: WORK NOTE
--- NOTE | 2017-01-09 23:52 | US ---
EXAM: US Abdomen Complete CLINICAL HISTORY: 31 years old, female; Pain; Abdominal pain; Generalized; ; Prior surgery; Surgery date: 6+ months; Surgery type: Cholecystectomy; Additional info: Epigastric pain, R/O cholecystitis TECHNIQUE: Real-time ultrasound of the abdomen (complete) with image documentation. COMPARISON: CT - ABD PELVIS W/O PO OR IV CONT 06/13/2015 12:25:49 AM FINDINGS: Liver: Normal echogenicity. No mass. No intrahepatic bile duct dilatation. Gallbladder: Cholecystectomy. Common bile duct: No dilatation. No stones. Pancreas: Unremarkable as visualized. Kidneys: Normal echogenicity. No hydronephrosis. Spleen: No splenomegaly. Aorta: Unremarkable. No aneurysm. Inferior vena cava: Unremarkable. Free fluid: No significant free fluid. IMPRESSION: 1.No acute findings. 2.Non-acute findings are described above.
[2017-01-09 23:58] LABS: ALBUMIN 4.2 g/dL (3.0-4.8); ALT/SGPT 32 U/L (7-56); AST/SGOT 30 U/L (15-39); BLOOD UREA NITROGEN 14 mg/dL (7-21); CALCIUM 9.6 mg/dL (8.4-10.5); GFR AFRICAN-AMERICAN > 60; GFR NON-AFRICAN AMERICAN > 60; LIPASE 85 U/L (23-300)
--- NOTE | 2017-01-10 00:03 | US ---
EXAM: US First Trimester, Transabdominal CLINICAL HISTORY: 31 years old, female; Pain; Other: Pelvic; Gestational age or lmp: 09/15/16; ; Additional info: , abd pain TECHNIQUE: Real-time transabdominal obstetrical ultrasound of the maternal pelvis and a first trimester with image documentation. COMPARISON: No relevant prior studies available. FINDINGS: Gestation: Single live intrauterine gestation. heart rate of 161 beats per minute. [place]-rump length of 4.56 cm, correlating with gestational age of 11 weeks 3 days. Uterus/cervix: No subchorionic hemorrhage. No cervical dilatation or effacement. Nabothian cyst. Ovaries: RIGHT ovary: Not visualized. LEFT ovary: Normal. No adnexal masses. Free fluid: No significant free fluid. IMPRESSION: 1. Single live intrauterine gestation. 2. Incidental/non-acute findings are described above. EXAM: US , Transvaginal CLINICAL HISTORY: 31 years old, female; Pain; Other: Pelvic; Gestational age or lmp: 09/15/16; ; Additional info: , abd pain TECHNIQUE: Real-time transvaginal obstetrical ultrasound of the maternal pelvis and a first trimester with image documentation. Transvaginal imaging was used for better evaluation of the fetus and adnexa. COMPARISON: No relevant prior studies available. FINDINGS: Gestation: Single live intrauterine gestation. heart rate of 161 beats per minute. [place]-rump length of 4.56 cm, correlating with gestational age of 11 weeks 3 days. Uterus/cervix: No subchorionic hemorrhage. No cervical dilatation or effacement. Nabothian cyst. Ovaries: RIGHT ovary: Not visualized. LEFT ovary: Normal. No adnexal masses. Free fluid: No significant free fluid.
[2017-01-10 01:01] VITALS: BP 116/77; O2SAT 98
[2017-01-10 01:02] VITALS: PULSE 85
== END 2017-01-10 01:01 | disposition home or self-care (01) ==
LOC: ED 22:05
DX: O26.891 Other specified pregnancy related conditions, first trimester (principal); R10.13 Epigastric pain; Z3A.11 11 weeks gestation of pregnancy
CPT/HCPCS: 76700; 76817; 80053; 81003; 83690; 84702; 85025; 87086; 96374; 99283; J2765; J7040

== ENCOUNTER 2017-01-18 19:36 | Emergency (ER) | payer MEDICAID ==
[2017-01-18 19:41] VITALS: BMI 32.5
--- NOTE | 2017-01-18 19:54 | ED PDOC ---
Arrival/HPI - General Historian: Patient - General Chief Complaint: Chest Pain Time Seen by Provider: 01/18/17 19:45 - History of Present Illness Narrative History of Present Illness (Text): 01/18/17 19:54 This 31 yo female, , with pmh ectopic , DVT, eclampsia, presents to this ED c/o nausea, vomiting, ESCOBAR x 4 days. Patient stated she developed a left sided CP since today. Patient has been taking Zofran ODT for nausea as needed. Patient stated she is concern for eclampsia. (Isabelle Owen) Past Medical History - Provider Review Nursing Documentation Reviewed: Yes - Infectious Disease Hx of Infectious Diseases: None - Tetanus Immunization Tetanus Immunization: Up to Date - Past Medical History Past Medical History: No Previous - Cardiac Hx Cardiac Disorders: Yes Hx Angina: No Hx Hypertension: Yes - Pulmonary Hx Respiratory Disorders: No - Neurological Hx Neurological Disorder: No - HEENT Hx HEENT Disorder: No - Renal Hx Renal Disorder: No - Endocrine/Metabolic Hx Endocrine Disorders: No - Hematological/Oncological Hx Blood Disorders: No - Integumentary Hx Dermatological Disorder: No - Musculoskeletal/Rheumatological Hx Musculoskeletal Disorders: No - Gastrointestinal Hx Gastrointestinal Disorders: Yes Hx Gastroesophageal Reflux: Yes - Genitourinary/Gynecological Hx Genitourinary Disorders: Yes Other/Comment: Pre-eclampsia, 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 - Psychiatric Hx Psychophysiologic Disorder: No Hx Depression: No Hx Emotional Abuse: No Hx Physical Abuse: No Hx Substance Use: No (none) - Surgical History Hx Section: Yes Hx Cholecystectomy: Yes Hx Tonsillectomy: Yes - Anesthesia Hx Anesthesia: Yes Hx Anesthesia Reactions: No Hx Malignant Hyperthermia: No - Suicidal Assessment Feels Threatened In Home Enviroment: No Family/Social History - Physician Review Nursing Documentation Reviewed: Yes Family/Social History: No Known Family HX Smoking Status: Never Smoked Hx Alcohol Use: No Hx Substance Use: No (none) Allergies/Home Meds Allergies/Adverse Reactions: Allergies Penicillins Allergy (Verified 12/07/16 15:20) RASH Home Medications: Home Meds Medication Instructions Recorded Confirmed Ferrous Sulfate [Feosol] 325 mg PO DAILY 01/09/17 01/18/17 Ondansetron ODT [Zofran ODT] 4 mg PO BID 01/09/17 01/18/17 Multivit/Folic Acid/I 1 tab PO DAILY 01/09/17 01/18/17 [ Plus] Review of Systems - Review of Systems Constitutional: Normal. absent: Fatigue, Weight Change, Fevers Eyes: Normal ENT: Normal Respiratory: Normal. absent: SOB, Cough Cardiovascular: Chest Pain. absent: Palpitations, Edema, Calf Pain, ANTHONY, Orthopnea, Syncope Gastrointestinal: Nausea, Vomiting. absent: Abdominal Pain, Constipation, Diarrhea Genitourinary Female: Normal. absent: Dysuria, Frequency, Hematuria, Vaginal Bleeding, Vaginal Discharge Musculoskeletal: Normal. absent: Back Pain, Neck Pain, Myalgias Skin: Normal. absent: Rash Neurological: Headache. absent: Dizziness, Focal Weakness, Gait Changes, Speech Changes, Facial Droop, Disequilibrium, Seizure Endocrine: Normal Hemo/Lymphatic: Normal Psychiatric: Normal Physical Exam Temperature: Afebrile Blood Pressure: Normal Pulse: Tachycardic Respiratory Rate: Normal Appearance: Positive for: Well-Appearing, Non-Toxic, Comfortable Pain Distress: None Mental Status: Positive for: Alert and Oriented X 3 - Systems Exam Head: Present: Atraumatic, Normocephalic Pupils: Present: PERRL Extroacular Muscles: Present: EOMI Conjunctiva: Present: Normal Mouth: Present: Moist Mucous Membranes Pharnyx: Present: Normal. No: ERYTHEMA, EXUDATE, TONSILS ENLARGED Neck: Present: Normal Range of Motion Respiratory/Chest: Present: Clear to Auscultation, Good Air Exchange. No: Respiratory Distress, Accessory Muscle Use, Wheezes, Retracting, Rhonchi Cardiovascular: Present: Regular Rate and Rhythm, Normal S1, S2. No: Murmurs Abdomen: Present: Normal Bowel Sounds. No: Tenderness, Distention, Peritoneal Signs, Rebound, Guarding Back: Present: Normal Inspection Upper Extremity: Present: Normal Inspection. No: Cyanosis, Edema Lower Extremity: Present: Normal Inspection. No: Edema Neurological: Present: GCS=15, CN II-XII Intact, Speech Normal Skin: Present: Warm, Dry, Normal Color. No: Rashes Psychiatric: Present: Alert, Oriented x 3, Normal Insight, Normal Concentration Vital Signs Temp Pulse Resp BP Pulse Ox 01/18/17 19:45 98.2 F 106 H 18 120/88 100 Medical Decision Making Re-evaluation Time: 21:44 Reassessment Condition: Re-examined, Improving,but remains with symptoms - Lab Interpretations I have reviewed the lab results: Yes - EKG Interpretation Interpreted by ED Physician: Yes (Sinus tachycardia @ [address] changes) Type: 12 lead EKG Comparison: No previous EKG avail. ED Course and Treatment: I was available for consultation during PA evaluation. The chart was reviewed by me, and I agree with disposition. The documented history was done by the physician public transit trolley driver. The documented physical exam was done by the physician public transit trolley driver. The documented procedures were done by the physician public transit trolley driver. (Heri Bell) 01/18/17 21:41 Patient presents to this ED c/o left sided CP, ESCOBAR, n/v. Denies pelvic pain, vaginal bleeding, or vaginal pain. Physical exam was unremarkable, except for HR 106 bpm. D dimer was elevated. Patient has a pmh PE, she was recommended to have a CT angiography of chest, but she refused to have this test due to radiation to her fetus. She is over 3 months . Patient prefers to speak with her THIRD MILLER first, before having this test. Patient agrees to return to emergency department if symptoms returns Leaving Against Medical Advice (AMA): This patient is choosing to leave against medical advice. The EP has personally explained to the pt that choosing to do so may result in permanent bodily harm or . The EP discussed at great length that without further evaluation and monitoring there may be unforeseen circumstances and/or deterioration causing permanent bodily harm or as a result of their choice. The pt verbalized these risks back to the physician in laymans terms. The pt is alert, oriented, and shows the mental capacity to make clear decisions regarding the pts health care at this time. The pt continues to wish to leave against medical advice. In light of the pts decision to leave AMA, follow-up has been recommended and the pt is aware of the importance of following up as instructed. The pt has been advised that they should return to the ED immediately if they change their mind at any time, or if this condition begins to change or worsen in any way. (Isabelle Owen) - Lab Interpretations Lab Results: 01/18/17 20:00 01/18/17 20:00 Lab Results 01/18/17 20:05: Urine Color Yellow, Urine Appearance Clear, Urine pH 6.0, Ur Specific [place] >= 1.030, Urine Protein Negative, Urine Glucose (UA) Negative, Urine Ketones Negative, Urine Blood Negative, Urine Nitrate Negative, Urine Bilirubin Negative, Urine Urobilinogen 0.2, Ur Leukocyte Esterase Negative 01/18/17 20:00: D-Dimer, Quantitative 0.71 H 01/18/17 20:00: Sodium 137, Potassium 3.6, Chloride 103, Carbon Dioxide 24, Anion Gap 14, BUN 9, Creatinine 0.5, Est GFR ( Amer) > 60, Est GFR (Non- Af Amer) > 60, Random Glucose 102, Calcium 9.5, Total Bilirubin 0.3, AST 26, ALT 29, Alkaline Phosphatase 52, Total Protein 7.8, Albumin 3.9, Globulin 4.0, Albumin/Globulin Ratio 1.0 L 01/18/17 20:00: WBC 9.7, RBC 3.95, Hgb 12.2, Hct 34.0 L, MCV 86.1, MCH 30.9, MCHC 35.9, RDW 12.6, Plt Count 340, MPV 9.7, Gran % 64.6, Lymph % (Auto) 28.0, [place] % (Auto) 5.3, Eos % (Auto) 2.0, Baso % (Auto) 0.1, Gran # 6.24, Lymph # 2.7 , [place] # 0.5, Eos # 0.2, Baso # 0.01 - Medication Orders Current Medication Orders: Discontinued Medications Sodium Chloride (Sodium Chloride 0.9%) 1,000 mls @ 999 mls/hr IV .Q1H1M STA Stop: 01/18/17 20:55 Last Admin: 01/18/17 20:15 Dose: 999 mls/hr Ondansetron HCl (Zofran Inj) 4 mg IVP STAT STA Stop: 01/18/17 19:56 Last Admin: 01/18/17 20:35 Dose: 4 mg Disposition/Present on Arrival - Present on Arrival Any Indicators Present on Arrival: No History of DVT/PE: No History of Uncontrolled Diabetes: No Urinary Catheter: No History of Decub. Ulcer: No History Surgical Site Infection Following: None - Disposition Have Diagnosis and Disposition been Completed?: Yes Disposition Time: 21:45 - Disposition Diagnosis: Nausea and vomiting during , Chest pain, Headache Disposition: AGAINST MEDICAL ADVICE Condition: UNKNOWN Discharge Instructions (ExitCare): Chest Pain (ED) Referrals: Oliver Hartley MD [Primary Care Provider] - Follow up with primary
[2017-01-18] MEDS ORDERED: Sodium Chloride 0.9% 1,000 ML IV STA (19:55)
[2017-01-18 19:57] VITALS: TEMP 98.2
[2017-01-18 20:31] LABS: ALBUMIN 3.9 g/dL (3.0-4.8); ALT/SGPT 29 U/L (7-56); AST/SGOT 26 U/L (15-39); BLOOD UREA NITROGEN 9 mg/dL (7-21); CALCIUM 9.5 mg/dL (8.4-10.5); GFR AFRICAN-AMERICAN > 60; GFR NON-AFRICAN AMERICAN > 60
[2017-01-18 20:44] LABS: BASO # 0.01 K/mm3 (0.0-2.0); BASO % 0.1 % (0.0-3.0); EOS # 0.2 (0.0-0.7); GRAN # 6.24 (1.4-6.5); GRAN % 64.6 % (50.0-68.0); HEMOGLOBIN 12.2 gm/dL (12.0-16.0); LYMPH # 2.7 (1.2-3.4); MEAN CELL VOLUME 86.1 fL (80.0-105.0); MEAN CORPUSCULAR HEMOGLOBIN 30.9 pg (25.0-35.0); MEAN CORPUSCULAR HGB CONC 35.9 g/dl (31.0-37.0); MEAN PLATELET VOLUME 9.7 fl (7.0-11.0); MONO # 0.5 (0.1-0.6); MONO % 5.3 % (1.0-6.0); PLATELET COUNT 340 10^3/uL (120.0-450.0); RBC 3.95 10^6/uL (3.5-6.1); RED CELL DISTRIBUTION WIDTH 12.6 % (11.5-14.5); WHITE BLOOD COUNT 9.7 10^3/ul (4.5-11.0)
[2017-01-18 20:45] LABS: URINE BILIRUBIN NEGATIVE (NEGATIVE); URINE BLOOD NEGATIVE (NEGATIVE); URINE GLUCOSE (UA) NEGATIVE (NEGATIVE); URINE LEUKOCYTE ESTERASE NEGATIVE Leu/uL (NEGATIVE); URINE NITRATE NEGATIVE (NEGATIVE); URINE PROTEIN NEGATIVE mg/dL (<30 mg/dL); URINE UROBILINOGEN 0.2 E.U./dL (<1 E.U./dL)
[2017-01-18 20:50] LABS: URINE APPEARANCE CLEAR (CLEAR); URINE COLOR YELLOW (YELLOW)
[2017-01-18 21:50] VITALS: BP 122/64; PULSE 89; RESP 17; O2SAT 97
--- NOTE | 2017-01-19 09:26 | CARD ---
APPROVED REPORT EKG Measurement Heart [id number] <Conclusion> Sinus tachycardia Otherwise normal ECG
== END 2017-01-18 21:50 | disposition left against medical advice (07) ==
LOC: ED 19:36
DX: O21.8 Other vomiting complicating pregnancy (principal); R07.9 Chest pain, unspecified; R51 Headache; Z3A.00 Weeks of gestation of pregnancy not specified
CPT/HCPCS: 80053; 81003; 84702; 85025; 85378; 87086; 93005; 96361; 96374; 99284; J2405; J7040

== ENCOUNTER 2017-08-20 19:49 | Emergency (ER) | payer MEDICAID, OTHER ==
[2017-08-20 20:05] VITALS: BMI 29.2
[2017-08-20 20:07] VITALS: BP 156/97; O2SAT 98
[2017-08-20] MEDS ORDERED: Sodium Chloride 0.9% 1,000 ML IV STA (20:40)
--- NOTE | 2017-08-20 20:40 | ED PDOC ---
Arrival/HPI <MarcoRaimundo - Last Filed: 08/20/17 21:33> - General Historian: Patient - History of Present Illness Time/Duration: Other (see hpi) Context: Home <Isabelle Owen - Last Filed: 08/21/17 18:53> - General Chief Complaint: Fever Time Seen by Provider: 08/20/17 20:37 - History of Present Illness Narrative History of Present Illness (Text): 08/20/17 20:39 This 31 yo female presents to this Emergency department complaining of fever, myalgias, sore throat, and urinary frequency x 1 day. Patient denies sob, cp, abdominal pain, dysuria, pelvic pain, skin rash, sick contact, [place], or recent travel. (Isabelle Owen) Past Medical History - Provider Review Nursing Documentation Reviewed: Yes - Infectious Disease Hx of Infectious Diseases: None - Tetanus Immunization Tetanus Immunization: Up to Date - Past Medical History Past Medical History: No Previous - Cardiac Hx Cardiac Disorders: Yes Hx Angina: No Hx Hypertension: Yes - Pulmonary Hx Respiratory Disorders: No - Neurological Hx Neurological Disorder: No - HEENT Hx HEENT Disorder: No - Renal Hx Renal Disorder: No - Endocrine/Metabolic Hx Endocrine Disorders: No - Hematological/Oncological Hx Blood Disorders: No - Integumentary Hx Dermatological Disorder: No - Musculoskeletal/Rheumatological Hx Musculoskeletal Disorders: No - Gastrointestinal Hx Gastrointestinal Disorders: Yes Hx Gastroesophageal Reflux: Yes - Genitourinary/Gynecological Hx Genitourinary Disorders: Yes Other/Comment: Pre-eclampsia, 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 - Psychiatric Hx Psychophysiologic Disorder: No Hx Depression: No Hx Emotional Abuse: No Hx Physical Abuse: No Hx Substance Use: No (none) - Surgical History Hx Section: Yes Hx Cholecystectomy: Yes Hx Tonsillectomy: Yes - Anesthesia Hx Anesthesia: Yes Hx Anesthesia Reactions: No Hx Malignant Hyperthermia: No - Suicidal Assessment Feels Threatened In Home Enviroment: No <Isabelle Owen - Last Filed: 08/21/17 18:53> Family/Social History - Physician Review Nursing Documentation Reviewed: Yes Family/Social History: Other (noncontributory) Smoking Status: Never Smoked Hx Alcohol Use: No Hx Substance Use: No (none) <Isabelle Owen - Last Filed: 08/21/17 18:53> Allergies/Home Meds <Raimundo Lara - Last Filed: 08/20/17 21:33> <Isabelle Owen Zaria - Last Filed: 08/21/17 18:53> Allergies/Adverse Reactions: Allergies Penicillins Allergy (Verified 12/07/16 15:20) RASH Home Medications: Home Meds Medication Instructions Recorded Confirmed Ferrous Sulfate [Feosol] 325 mg PO DAILY 01/09/17 01/18/17 Ondansetron ODT [Zofran ODT] 4 mg PO BID 01/09/17 01/18/17 Multivit/Folic Acid/I 1 tab PO DAILY 01/09/17 01/18/17 [ Plus] Review of Systems - Review of Systems Constitutional: Fevers Eyes: Normal. absent: Photophobia ENT: Normal, Rhinorrhea Respiratory: Cough. absent: SOB, Sputum, Wheezing Cardiovascular: Normal. absent: Chest Pain Gastrointestinal: Normal. absent: Abdominal Pain, Diarrhea, Nausea Genitourinary Female: Frequency. absent: Dysuria, Hematuria, Urine Output Changes, Vaginal Bleeding, Vaginal Discharge Musculoskeletal: Myalgias Skin: Normal. absent: Rash Neurological: Normal. absent: Headache, Dizziness, Focal Weakness, Gait Changes , Speech Changes, Facial Droop, Disequilibrium, Seizure Endocrine: Normal Hemo/Lymphatic: Normal Psychiatric: Normal <Kina Owenmandie Enciso - Last Filed: 08/21/17 18:53> Physical Exam Temperature: Febrile Blood Pressure: Normal Pulse: Tachycardic Respiratory Rate: Normal Appearance: Positive for: Well-Appearing, Non-Toxic, Comfortable Pain Distress: None Mental Status: Positive for: Alert and Oriented X 3 - Systems Exam Head: Present: Atraumatic, Normocephalic Pupils: Present: PERRL Extroacular Muscles: Present: EOMI Conjunctiva: Present: Normal Ears: Present: Normal, NORMAL TM. No: Erythema Mouth: Present: Moist Mucous Membranes Pharnyx: Present: Normal. No: ERYTHEMA, EXUDATE, TONSILS ENLARGED Nose (External): Present: Atraumatic Nose (Internal): Present: Normal Inspection Neck: Present: Normal Range of Motion, Trachea Midline. No: Meningeal Signs, Paraspinal Tenderness, Lymphadenopathy Respiratory/Chest: Present: Clear to Auscultation, Good Air Exchange. No: Respiratory Distress, Accessory Muscle Use, Wheezes, Decreased Breath Sounds, Rales, Retracting, Rhonchi Cardiovascular: Present: Regular Rate and Rhythm, Normal S1, S2. No: Murmurs Abdomen: Present: Normal Bowel Sounds. No: Tenderness, Distention, Peritoneal Signs Back: Present: Normal Inspection. No: CVA Tenderness Upper Extremity: Present: Normal Inspection, Normal ROM. No: Cyanosis, Edema Lower Extremity: Present: Normal Inspection, Normal ROM. No: Edema Neurological: Present: GCS=15, CN II-XII Intact, Speech Normal Skin: Present: Warm, Dry, Normal Color. No: Rashes Psychiatric: Present: Alert, Oriented x 3, Normal Insight, Normal Concentration <Isabelle Owen - Last Filed: 08/21/17 18:53> Vital Signs Temp Pulse Resp BP Pulse Ox 08/20/17 22:11 97.8 F 95 H 18 98 08/20/17 21:22 100.1 F H 105 H 18 98 08/20/17 20:11 101.7 F H 08/20/17 20:06 101.7 F H 116 H 20 156/97 H 98 Medical Decision Making <Raimundo Lara - Last Filed: 08/20/17 21:33> Re-evaluation Time: 21:43 Reassessment Condition: Re-examined, Improved <Isabelle Owen - Last Filed: 08/21/17 18:53> ED Course and Treatment: 08/20/17 21:43 Re-evaluation. Patient feels better. Discussed results and plan with patient who expresses understanding. All questions answered and there is agreement with the plan to discharge home with instructions. Patient stable for discharge. Return if symptoms persist or worsen. (Isabelle Owen) - Lab Interpretations Lab Results: Lab Results 08/20/17 21:20: Urine Color Yellow, Urine Appearance Clear, Urine pH 6.5, Ur Specific [place] 1.020, Urine Protein Trace H, Urine Glucose (UA) Negative, Urine Ketones Negative, Urine Blood Trace-intact H, Urine Nitrate Negative, Urine Bilirubin Negative, Urine Urobilinogen 0.2, Ur Leukocyte Esterase Negative , Urine RBC 2 - 5, Urine WBC 0 - 2, Ur Epithelial Cells 4 - 5, Amorphous Sediment Few, Urine Bacteria Small, Urine Other Uyeast - Medication Orders Current Medication Orders: Discontinued Medications Acetaminophen (Tylenol 325mg Tab) 975 mg PO STAT STA Stop: 08/20/17 20:11 Last Admin: 08/20/17 20:11 Dose: 975 mg MAR Pain/Vitals Document 08/20/17 20:11 GMD (Rec: 08/20/17 20:11 GMD [id number]) Pain Reassessment Is This A Pain ReAssessment? No Sleep Is patient sleeping during reassessment? No Presence of Pain Presence of Pain Yes Vitals Temperature (97.6 F-99.6 F) 101.7 F Temperature Source Oral Fluconazole (Diflucan) 150 mg PO STAT STA PRN Reason: Protocol Stop: 08/20/17 21:43 Last Admin: 08/20/17 22:08 Dose: 150 mg Sodium Chloride (Sodium Chloride 0.9%) 1,000 mls @ 999 mls/hr IV .Q1H1M STA Stop: 08/20/17 21:40 Last Admin: 08/20/17 20:58 Dose: 999 mls/hr eMAR Start Stop Document 08/20/17 20:58 GMD (Rec: 08/20/17 20:58 GMD [id number]) Intravenous Solution Start Date 08/20/17 Start Time 20:58 End Date 08/20/17 End time 21:59 Total Infusion Time 61 Ketorolac Tromethamine (Toradol) 60 mg IM STAT STA Stop: 08/20/17 20:38 Ketorolac Tromethamine (Toradol) 30 mg IVP STAT STA Stop: 08/20/17 20:49 Last Admin: 08/20/17 20:58 Dose: 30 mg MAR Pain Assessment Document 08/20/17 20:58 GMD (Rec: 08/20/17 20:58 GMD [id number]) Pain Reassessment Is this a pain reassessment? No Presence of Pain Presence of Pain Yes IVP Administration Document 08/20/17 20:58 GMD (Rec: 08/20/17 20:58 GMD [id number]) Charges for Administration # of IVP Administrations 1 Ondansetron HCl (Zofran Inj) 4 mg IVP STAT STA Stop: 08/20/17 20:42 Last Admin: 08/20/17 20:58 Dose: 4 mg IVP Administration Document 08/20/17 20:58 GMD (Rec: 08/20/17 20:58 [facility] [id number]) Charges for Administration # of IVP Administrations 1 Oseltamivir Phosphate (Tamiflu Cap) 75 mg PO STAT STA PRN Reason: Protocol Stop: 08/20/17 21:31 Last Admin: 08/20/17 22:06 Dose: 75 mg - PA / SUPPORT CLERK / Resident Statement MD/DO has reviewed & agrees with the documentation as recorded. <Raimundo Lara - Last Filed: 08/20/17 21:33> Disposition/Present on Arrival <Raimundo Lara - Last Filed: 08/20/17 21:33> - Present on Arrival Any Indicators Present on Arrival: No History of DVT/PE: No History of Uncontrolled Diabetes: No Urinary Catheter: No History of Decub. Ulcer: No History Surgical Site Infection Following: None - Disposition Have Diagnosis and Disposition been Completed?: Yes Disposition Time: 21:44 Patient Plan: Discharge <Isabelle Owen - Last Filed: 08/21/17 18:53> - Disposition Diagnosis: Influenza-like symptoms Disposition: HOME/ ROUTINE Condition: GOOD Discharge Instructions (ExitCare): Influenza (ED) Additional Instructions: Call private doctor for follow up visit in 1-2 days. Take medication as instructed with food. return to emergency if symptoms worsen. Prescriptions: Azithromycin [Z-Abel] 250 mg PO DAILY #6 tab Ibuprofen [Motrin] 600 mg PO Q6H PRN #20 tab PRN Reason: Fever >100.4 F Oseltamivir [Tamiflu] 75 mg PO BID #9 cap Promethazine [Phenergan Syrup] 6.25 mg PO Q4H PRN #120 ml PRN Reason: Cough And Congestion Referrals: Moriah Fowler MD [Primary Care Provider] - Follow up with primary Forms: [employer] ([place])
[2017-08-20 21:24] VITALS: RESP 18
[2017-08-20 21:35] LABS: PH,URINE 6.5 (4.7-8.0); URINE APPEARANCE CLEAR (CLEAR); URINE BILIRUBIN NEGATIVE (NEGATIVE); URINE BLOOD TRACE-INTACT (NEGATIVE); URINE COLOR YELLOW (YELLOW); URINE GLUCOSE (UA) NEGATIVE (NEGATIVE); URINE LEUKOCYTE ESTERASE NEGATIVE Leu/uL (NEGATIVE); URINE NITRATE NEGATIVE (NEGATIVE); URINE PROTEIN TRACE mg/dL (<30 mg/dL); URINE UROBILINOGEN 0.2 E.U./dL (<1 E.U./dL)
[2017-08-20 21:40] LABS: URINE WBC 0 - 2 /hpf (0-6)
[2017-08-20 21:41] LABS: URINE AMORPHOUS SEDIMENT FEW; URINE BACTERIA SMALL (NEG)
[2017-08-20 22:12] VITALS: PULSE 95; TEMP 97.8
== END 2017-08-20 22:12 | disposition home or self-care (01) ==
LOC: ED 19:49
DX: J11.1 Influenza due to unidentified influenza virus with other respiratory manifestations (principal)
CPT/HCPCS: 81001; 96361; 96374; 96375; 99285; J1885; J2405; J7040